=== PATIENT | female | born 1945 | race Hispanic/Latino ===

== ENCOUNTER → 2018-02-07 | Outpatient (CLI) | payer OTHER | END | disposition home or self-care (01) | LOC: RAH 09:43 | PROVIDERS: ATTEND Family Medicine | DX: Z12.31 Encounter for screening mammogram for malignant neoplasm of breast (principal) | CPT/HCPCS: 77067 ==

== ENCOUNTER → 2018-02-09 | Outpatient (CLI) | payer OTHER | END | disposition home or self-care (01) | LOC: RAH 13:53 | PROVIDERS: ATTEND Family Medicine | DX: H35.82 Retinal ischemia (principal) | CPT/HCPCS: 93880 ==

== ENCOUNTER → 2020-12-19 | Outpatient (CLI) | payer MEDICARE | END | disposition home or self-care (01) | LOC: OIH 12:41 | PROVIDERS: ATTEND Family Medicine | DX: Z01.818 Encounter for other preprocedural examination (principal); I10 Essential (primary) hypertension | CPT/HCPCS: 71046 ==

== ENCOUNTER 2024-06-28 19:14 | Inpatient (IN) | payer MEDICARE, OTHER ==
[~2024-06-28] VITALS: Ht 149.9 cm; Wt 45.8 kg
[2024-06-28] MEDS: 0.9%NACL 1000ML 1,000 ML IV ONE (19:56)
--- NOTE | 2024-06-28 19:59 | ERN ---
ED Note History of Present Illness Stated Complaint: C/O FATIGUE, NO APETITE,DIZZINESS, COUGH, PHLEGM Chief Complaint: Hypotension Time Seen by MD: 19:30 Dictation: History of present illness: 79-year-old female past medical history of diabetes, hypertension, GERD, presented to ED with complaints of worsening fatigue, decreased appetite, dizziness, productive cough of 2 weeks' duration. History obtained from the daughter at bedside. As per the daughter patient has not been ambulating even with walker for the past couple of days and her cough has been worsening. At the time of presentation, blood pressure was 76/43 mmHg and pulse rate was 103 beats per minute. Patient denies any chest pain, shortness of breath, palpitations, fever. Patient is taking Xarelto 20 mg daily for unknown cause. Allergies: Coded Allergies: No Known Allergies (Unverified Allergy, Unknown, 06/28/24) Past Medical History Past Medical History: Diabetes-Type II, Hypertension, Other Additional Past Medical Hx: ACID REFLUX Surgical History: Other, Surgical History Other: LEFT HIP SX Family History: Negative Social History: Negative History: Not Applicable RN Note Reviewed/Agreed w/PFSH: Yes Review of System Dictation REVIEW OF SYSTEMS Positive for worsening fatigue, decreased appetite, dizziness, productive cough CONSTITUTIONAL: Denies fevers, chills, or night sweats. No unintentional weight loss reported. ENT: No hearing loss, otalgia, otorrhea, rhinitis, rhinorrhea, hoarseness, or sore throat. CARDIOVASCULAR: Denies any exertional angina, dyspnea on exertion, orthopnea, paroxysmal nocturnal dyspnea, palpitations claudication. PULMONARY: Denies any shortness of breath, hemoptysis, pleuritic chest pain. SLEEP: Denies morning headaches, daytime somnolence or napping. Denies difficulty falling asleep, staying asleep, waking from sleep. Denies knowledge of snoring. GASTROINTESTINAL: Denies any type of dysphagia to either liquids or solids. Denies nausea, vomiting, abdominal pain, diarrhea, constipation. ?blood in stools . NEUROLOGICAL: Denies headache, motor weakness, sensory deficit, vertigo / spinning sensation, gait abnormalities, or tremors. GENITOURINARY: Denies frequency, urgency, nocturia, hematuria or incontinence, low urinary stream, straining to void, urinary intermittency or hesitancy ENDOCRINOLOGY: Denies polyuria, polydipsia, polyphagia or heat / cold intolerance. HEMATOLOGY: Denies thrombophilia / previous clots, or coagulopathy / bleeding disorders. ONCOLOGIC: Denies personal history of malignancy. DERMATOLOGIC: Denies rashes or pruritus. PSYCHIATRIC: Denies any suicidal or homicidal ideation. Denies hallucinations. Initial Vital Sign VS Vital Signs Date Time Temp Pulse Resp B/P (MAP) Pulse Ox O2 Delivery O2 Flow Rate FiO2 06/28/24 19:23 97.9 103 20 76/43 96 Room Air 06/28/24 19:49 0 21 Physical Exam Dictation PHYSICAL EXAM GENERAL APPEARANCE: Poorly nourished . Drowsy but easily arousable. Oriented to time, place and person. No acute cardiopulmonary distress. HEENT: Head normocephalic , atraumatic. Sclera anicteric . Pupils are round and reactive. Extraocular movements intact . No conjunctival injection. No nasal congestion. No throat congestion .Oral mucosa moist. NECK: Supple. No JVD. No thyromegaly. No submental, submandibular, pre- /postauricular, occipital or supraclavicular lymphadenopathy. No carotid bruits. CHEST: Normal chest expansion. No Telemetry. LUNGS: Clear to auscultation bilaterally . No rales, rhonchi or any wheezing. Equal tactile fremitus. Resonant to percussion . CARDIOVASCULAR: Regular rate and rhythm. S1 and S2 normal. No rubs, murmurs or gallops. ABDOMEN: Soft, generalized tenderness and nondistended. There is no rebound tenderness, voluntary guarding, or rigidity. No hepatosplenomegaly. Bowel sounds normal in all four quadrants . NEUROLOGICAL: Cranial nerves II-XII grossly intact. Motor is 5/5 in bilateral upper and lower extremities . No sensory deficits. EXTREMITIES: No edema, No cyanosis , No clubbing. Good capillary refill. SKIN: No skin breakdown. No rashes or lesions . PSYCHIATRY: Normal affect .No auditory or visual hallucinations. Normal speech. No dysarthria. Results (Laboratory/Radiology) Laboratory/Radiology Laboratory Tests Test 06/28/24 19:34 06/28/24 19:44 Influenza Type A Antigen Negative For Type A Influenza Type B Antigen Negative For Type B SARS-CoV-2, RNA, NAAT NEGATIVE SARS CoV-2 Group A Streptococcus Rapid negative (NEGATIVE) White Blood Count 13.1 K/uL (4.8-10.8) H Red Blood Count 2.22 MIL/uL (4.00-5.50) L Hemoglobin 6.3 g/dL (12.0-16.0) *L Hematocrit 19.4 % (36-48) *L Mean Corpuscular Volume 87.4 fL (79-99) Mean Corpuscular Hemoglobin 28.4 pg (27.0-33.0) Mean Corpuscular Hemoglobin Concent 32.5 g/dL (32.0-36.0) Red Cell Distribution Width 17.2 % (11.0-15.5) H Platelet Count 645 K/uL (130-400) H Mean Platelet Volume 8.5 fL (7.5-10.5) Immature Granulocyte % (Auto) 0.8 % (0-1) Neutrophils (%) (Auto) 79.8 % (40.0-77.0) H Lymphocytes (%) (Auto) 15.4 % (21.0-51.0) L Monocytes (%) (Auto) 2.3 % (3.0-13.0) L Eosinophils (%) (Auto) 1.5 % (0.0-8.0) Basophils (%) (Auto) 0.2 % (0.0-5.0) Neutrophils # (Auto) 10.4 K/uL (1.8-7.7) H Lymphocytes # (Auto) 2.0 K/uL (1.0-4.8) Monocytes # (Auto) 0.3 K/uL (0.1-1.0) Eosinophils # (Auto) 0.19 K/uL (0.00-0.70) Basophils # (Auto) 0.02 K/uL (0.00-0.20) Absolute Immature Granulocyte (auto 0.11 K/uL (0-1) Nucleated Red Blood Cells 0.0 % (0.0-0.19) Sodium Level 133 mmol/L (136-145) L Potassium Level 4.3 mmol/L (3.5-5.1) Chloride Level 101 mmol/L (101-111) Carbon Dioxide Level 20 mmol/L (21-32) L Blood Urea Nitrogen 26 mg/dL (7-18) H Creatinine 1.2 mg/dL (0.5-1.0) H Glomerular Filtration Rate Calc 46 mL/min (>90) Random Glucose 226 mg/dL (70-105) H Lactic Acid Level 2.8 mmol/L (0.8-2.5) H Total Calcium 8.0 mg/dL (8.5-10.1) L Total Creatine Kinase 22 U/L (21-232) Troponin I High Sensitivity 9 ng/L (4-50) Labs Reviewed?: Yes EKG Comment: EKG, 06/28/2024, 7:36 p.m. Sinus rhythm, ventricular rate 84 beats per minute, AR interval 129, QT 440 ST depression and T-wave inversion noted in lead 2, V5 ,V6 No old EKG to compare ED Course ED Course Orders Procedure Category Date Status Time 12 Lead Ekg Tracing- EKG 06/28/24 Logged Technical 19:38 Influenza Type A & B, LAB 06/28/24 Complete Rapid 19:38 Rapid (Group A Strep) LAB 06/28/24 Complete 19:38 Covid Rna Naat LAB 06/28/24 Complete 19:38 Iv Insertion CPOE 06/28/24 Transmitted 19:38 Pulse Ox(Continuous) RT 06/28/24 Transmitted 19:38 Vital Signs Per CPOE 06/28/24 Transmitted Routine 19:38 12 Lead Ekg Tracing- EKG 06/28/24 Logged Technical 19:38 Cbc With Differential LAB 06/28/24 Complete 19:38 Blood Cult VIVIAN 06/28/24 In Process 19:38 Urinalysis Profile LAB 06/28/24 Logged 19:38 Culture Urine VIVIAN 06/28/24 Logged 19:38 Creatine Kinase, Total LAB 06/28/24 Complete 19:38 Troponin I High LAB 06/28/24 Complete Sensitivity 19:38 Lactic Acid LAB 06/28/24 Complete 19:38 Basic Metabolic Panel LAB 06/28/24 Complete 19:38 Chest 1vw RAD 06/28/24 Taken 19:38 0.9%Nacl 1000ml (Ns PHA 06/28/24 Complete 1000ml) 20:00 Rbc-Active Bleeding BBK 06/28/24 In Process 20:07 *Nursing CPOE 06/28/24 Transmitted Communication: 20:07 Type And Screen BBK 06/28/24 In Process 20:07 Ceftriaxone 1g Vial PHA 06/28/24 Complete (Rocephine 1g Inj) 20:30 Azithromycin 500mg+Ns PHA 06/28/24 In Process 250ml (Azithromyci 20:30 Pantoprazole 40mg Inj PHA 06/28/24 Transmitted (Protonix 40mg Inj 21:30 Edm Admit Bridge Order ADM 06/28/24 Transmitted 21:11 Current Medications Medications (Trade) Dose Ordered Sig/Rebekah Route PRN Reason Start Time Stop Time Status Last Admin Dose Admin Azithromycin 250 ml @ 250 mls/hr ONCE ONCE IVPB 06/28/24 20:30 06/28/24 21:29 Ceftriaxone Sodium (ROCEphine 1G INJ) 1 gm ONCE ONCE IVPB 06/28/24 20:30 06/28/24 20:31 DC 06/28/24 20:55 Pantoprazole Sodium (PROTonix 40MG INJ) 40 mg ONCE ONCE IVP 06/28/24 21:30 06/28/24 21:31 Sodium Chloride 1,000 ml @ 0 mls/hr ONCE ONCE IV 06/28/24 20:00 06/28/24 20:01 DC 06/28/24 19:56 Vital Signs Date Time Temp Pulse Resp B/P (MAP) Pulse Ox O2 Delivery O2 Flow Rate FiO2 06/28/24 21:06 68 18 101/41 100 Room Air* 0 21 06/28/24 19:49 97.5 92 18 100/43 100 Room Air* 0 21 06/28/24 19:23 97.9 103 20 76/43 96 Room Air Medical Decision Making MDM Differential diagnosis : Acute NE, cardiogenic shock, septic shock, pneumonia Rationale: Tests considered and ordered secondary to shared decision making include: CBC, BMP, URINALYSIS, LACTIC ACID, K, TROPONIN, CHEST X-RAY, EKG I will re-evaluate the patient after treatment and diagnostic exams have returned to determine whether they require further testing, can be safely discharged home, or need admission for further treatment and evaluation. Given the social determinants of health affecting care, including literacy, access to medical care, prescription drug management, and [id number] drugs, I will ensure that treatment plans are tailored accordingly. There are no social concerns with this patient. Risk of complication and/or morbidity or mortality of patient management: None Need for hospitalization: Patient does not meet criteria for hospitalization. Need for emergency major/minor surgery: No Prescription drug management Prescriptions will include symptomatic care Medications-Per medication reconciliation Previous outside records reviewed: Old ER visits. Patient's prior external medical records from other ER visits were reviewed by me as indicated. Prior testing and results from previous visits were reviewed. Prior tests were taken into account with medical decision making and resource utilization, independent historian/historians were used to obtain complete medical history. I independently interpreted the test that were performed, results were reviewed by me and considered findings on radiology. Medical management and examination interpretation discussions was done by me with other qualified healthcare professionals as indicated for the patient's care. Revaluation Disposition : Problem List Problem List: (1) Lactic acidosis (2) Acute kidney injury (3) Sepsis due to pneumonia (4) Severe anemia (5) Anticoagulant long-term use (6) GI bleed (7) Hypotension DX & DISP Disposition: Inpatient Decision to Admit Time: 20:18 Departure Impression: Primary Impression: Sepsis due to pneumonia Additional Impressions: Hypotension, Severe anemia, GI bleed, Anticoagulant long-term use, Acute kidney injury, Lactic acidosis Condition: Stable Additional Instructions: Patient was informed of all the diagnostic labs and procedures conducted in the emergency room today and demonstrated understanding of the results. I personally reviewed and interpreted all the diagnostic exams performed in the ER today. The patient will be admitted to the hospital for further treatment and evaluation. Disposition-admit to facility Condition-stable/guarded Course-uncertain at this time Pain status-decreased Assessment-exam unchanged Admission Certification- I certify that the patients status is appropriate and is based on my best clinical judgment and the patient's condition as documented in the medical records Referrals: SOLITARIO HELLER MD (PCP) I have examined patient, & reviewed all documents, & agreed W/ the Diagnosis, and Plan This is an 79-year-old female who was brought in by family members with complaints of cough congestion for 2 weeks with profound weakness. She does report mucopurulent sputum. No history of any hemoptysis. At baseline usually uses a walker for mobility however last 2 weeks she is unable to even ambulate due to dizziness and weakness and hence the family has been using diapers. The daughter reported that patient has been on Xarelto 20 mg a day for DVT prophylaxis. Unclear if patient really had DVT from the history. on review of systems she also admits to tarry stools. patient also has poor appetite vital signs reviewed blood pressure 76 / 43, Which improved to 100/53 heart rate 103, respiratory rate 20, temperature 97.9, pulse oximetry 98% on room air. General: awake, alert, NAD Very pale elderly lady, comfortable not in any acute respiratory distress, coughing intermittently Head/Face: Normocephalic, atraumatic Eyes: PERRL, EOMI, vision at baseline ENT: oral cavity clear, TMs clear, no signs of infection Neck: Trachea midline, supple, no nuchal rigidity Cardiovascular: RRR, normal S1/S2, No MRGs, no JVD Respiratory: bilateral coarse rhonchi Abdomen: Soft, non-tender, non-distended, normal bowel sounds, no guarding or rebound. Skin: Warm, dry, normal turgor, no rash MS/Extremity: Pulses equal, no cyanosis, neurovascular intact, FROM Neuro: COAx4, GCS 15, strength 5/5, CN 2-12 intact, normal cerebellar exam, normal gait, Psych: Normal behavior, mood, and affect normal Extremities-trace edema without any palpable cords, Homans sign is negative CBC showed a leukocytosis, hemoglobin of 6.3. chest x-ray shows left retrocardiac possible infiltrate. Radiology report is pending Impression - sepsis likely from pulmonary origin community-acquired pneumonia severe anemia probably from melena and blood loss weakness and asthenia Gentle hydration, type and cross and transfuse 1 unit PRBC PPI. Hold Xarelto for now until more clarification with regards to indication from her primary care physician recommended admission to the hospital for further management. 9:10 p.m. patient accepted by [facility] for further admission and management. I have recommended ICU overnight at least BEHZAD KINSEY MD Jun 28, 2024 19:59 DINAH GRADY MD Jun 28, 2024 20:42
[2024-06-28 20:03] LABS: BASOPHILS # (AUTO) 0.02 K/uL (0.00-0.20); BASOPHILS % (AUTO) 0.2 % (0.0-5.0); EOSINOPHILS # (AUTO) 0.19 K/uL (0.00-0.70); EOSINOPHILS % (AUTO) 1.5 % (0.0-8.0); IMMATURE GRANULOCYTE ABSOLUTE 0.11 K/uL (0-1); LYMPHOCYTES % (AUTO) 15.4 % (21.0-51.0); MEAN CORPUSCULAR HEMOGLOBIN 28.4 pg (27.0-33.0); MEAN CORPUSCULAR HGB CONC 32.5 g/dL (32.0-36.0); MEAN CORPUSCULAR VOLUME 87.4 fL (79-99); MONOCYTES # (AUTO) 0.3 K/uL (0.1-1.0); MONOCYTES % (AUTO) 2.3 % (3.0-13.0); NEUTROPHILS # (AUTO) 10.4 K/uL (1.8-7.7); NEUTROPHILS % (AUTO) 79.8 % (40.0-77.0); PLATELET COUNT (AUTO) 645 K/uL (130-400); RED BLOOD CELL COUNT(AUTO) 2.22 MIL/uL (4.00-5.50); RED CELL DISTRIBUTION WIDTH 17.2 % (11.0-15.5); WHITE BLOOD COUNT (AUTO) 13.1 K/uL (4.8-10.8)
[2024-06-28 20:06] LABS: HEMATOCRIT 19.4 % (36-48)
[2024-06-28 20:10] LABS: RAPID GROUP A STREP negative (NEGATIVE)
[2024-06-28 20:13] LABS: SARS-CoV-2, RNA, NAAT NEGATIVE SARS CoV-2 (NEGATIVE)
[2024-06-28 20:20] LABS: INFLUENZA TYPE A Negative For Type A (NEGATIVE); INFLUENZA TYPE B Negative For Type B (NEGATIVE)
[2024-06-28 20:34] LABS: CREATININE 1.2 mg/dL (0.5-1.0); POTASSIUM 4.3 mmol/L (3.5-5.1)
[2024-06-28] MEDS: cefTRIAXone 1G VIAL IVPB ONE (20:55)
[2024-06-28] MEDS: AZITHROMYCIN 500MG+NS 250ML 250 ML IVPB ONE (21:23)
[2024-06-28] MEDS: PANTOPrazole 40 MG/VIAL IVP ONE (21:26)
--- NOTE | 2024-06-28 22:25 | HP ---
[facility] HISTORY & PHYSICAL Date Patient Seen: Jun 28, 2024 Time of Visit: 22:16 Supervising Physician: Dr. Zeinab Reeves Primary Care Physician: Dr. Jefferson Outpatient Specialists: [ ] Inpatient Consults: [ ] PROBLEM LIST: Severe sepsis, likely from pneumonia, UA pending POA Acute blood loss anemia, POA GI bleed, POA Acute kidney injury, POA Community-acquired pneumonia, POA Leukocytosis, POA Right leg pain, possible DVT, POA PLAN: Admit to PCCU Facilitate blood transfusion VS per unit protocol Complete bedrest for now H&H q.6 NPO for now Protonix b.i.d. We will obtain venous Doppler of the lower extremities PT/OT eval and treat Continue NS at 100 cc/hour Treat fever aggressively Obtain urine for UA Strict I&O Aspiration precautions DuoNeb q.6 Mucomyst q.6 Stool for occult blood Hold anticoagulants CBC, CMP, magnesium level daily HPI: 79-year-old female with past medical history of hypertension, dm type 2, previous hip replacement who presented to ED with complaint of generalized body weakness and productive cough and found to have possible community-acquired pneumonia, acute blood loss anemia, acute kidney injury, severe sepsis and possible GI bleed. Patient was seen and examined in ED with daughter present at bedside. Patient is Japanese-speaking only however daughter is able to translate during evaluation. According to her she has been having issues with generalized body weakness, fatigue, and cough and dark tarry stool, and she has been bed-bound for the past weeks and unable to get up on her own. The patient is also complaining of right leg pain. This was initially discussed with her PCP and was given anticoagulant for DVT prophylaxis. In ED stat chest x-ray was done and showed bilateral infiltrates, [place] [address], hemoglobin of 6.3, lactic acid of 2.8, and creatinine level of 1.2. Initial evaluation in ED patient was tachycardic, and borderline hypotensive improved with IV bolus. In ED patient was initiated on ceftriaxone azithromycin for cap coverage, and was ordered 1 unit PRBC. At present patient is currently normal sinus rhythm, with systolic blood pressure 100 mmHg, on room air appropriate oxygen saturation, denies any headache, chest pain, shortness of breath, abdominal pain, but complains of right leg pain and generalized body weakness. Patient also looks pale. Patient denies any smoking, alcohol intake, illicit drug use. Patient is vaccinated against COVID virus in her flu shot is up-to-date. PAST MEDICAL HX: see above PAST SURGICAL HX: Right hip surgery SOCIAL HISTORY: No tobacco, ETOH, or illicit drug use Coded Allergies: No Known Allergies (Unverified Allergy, Unknown, 06/28/24) REVIEW OF SYSTEMS: 12 point ROS reviewed with patient. Pertinent positives mentioned above. Otherwise negative. PHYSICAL EXAM: GENERAL: alert, weak, awake oriented x 3 HEENT: EOMI, Sclera non icteric, moist mucosa NECK: Supple, no JVD, trachea midline LUNGS: Clear breath sounds bilaterally. No wheezes HEART: Regular rate and rhythm. Normal S1 and S2, without murmurs ABD: Abdomen soft, nontender. Bowel sounds present EXT: No clubbing cyanosis or edema, right leg pain NEURO: Alert and oriented to person, follows commands Vital Signs (last 8hr) Date Time Temp Pulse Resp B/P (MAP) Pulse Ox O2 Delivery O2 Flow Rate FiO2 06/28/24 21:06 68 18 101/41 100 Room Air* 0 21 06/28/24 19:49 97.5 92 18 100/43 100 Room Air* 0 21 06/28/24 19:23 97.9 103 20 76/43 96 Room Air LABS: Hematology Labs: Test 06/28/24 19:44 Range/Units White Blood Count 13.1 H 4.8-10.8 K/uL Red Blood Count 2.22 L 4.00-5.50 MIL/uL Hemoglobin 6.3 *L 12.0-16.0 g/dL Hematocrit 19.4 *L 36-48 % Mean Corpuscular Volume 87.4 79-99 fL Mean Corpuscular Hemoglobin 28.4 27.0-33.0 pg Mean Corpuscular Hemoglobin Concent 32.5 32.0-36.0 g/dL Red Cell Distribution Width 17.2 H 11.0-15.5 % Platelet Count 645 H 130-400 K/uL Mean Platelet Volume 8.5 7.5-10.5 fL Immature Granulocyte % (Auto) 0.8 0-1 % Neutrophils (%) (Auto) 79.8 H 40.0-77.0 % Lymphocytes (%) (Auto) 15.4 L 21.0-51.0 % Monocytes (%) (Auto) 2.3 L 3.0-13.0 % Eosinophils (%) (Auto) 1.5 0.0-8.0 % Basophils (%) (Auto) 0.2 0.0-5.0 % Neutrophils # (Auto) 10.4 H 1.8-7.7 K/uL Lymphocytes # (Auto) 2.0 1.0-4.8 K/uL Monocytes # (Auto) 0.3 0.1-1.0 K/uL Eosinophils # (Auto) 0.19 0.00-0.70 K/uL Basophils # (Auto) 0.02 0.00-0.20 K/uL Absolute Immature Granulocyte (auto 0.11 0-1 K/uL Nucleated Red Blood Cells 0.0 0.0-0.19 % Chemistry Labs: Test 06/28/24 19:44 Range/Units Sodium Level 133 L 136-145 mmol/L Potassium Level 4.3 3.5-5.1 mmol/L Chloride Level 101 101-111 mmol/L Carbon Dioxide Level 20 L 21-32 mmol/L Blood Urea Nitrogen 26 H 7-18 mg/dL Creatinine 1.2 H 0.5-1.0 mg/dL Glomerular Filtration Rate Calc 46 >90 mL/min Random Glucose 226 H 70-105 mg/dL Lactic Acid Level 2.8 H 0.8-2.5 mmol/L Total Calcium 8.0 L 8.5-10.1 mg/dL Total Creatine Kinase 22 21-232 U/L Troponin I High Sensitivity 9 4-50 ng/L DIAGNOSTICS / RADIOLOGY RESULTS: [ ] PLAN NEURO: Minimize central acting medications as possible. Maintain fall precautions, adequate lighting during the day PULMONARY: Supplemental 02 as needed. Maintain aspiration precautions at all times CARDIOVASCULAR: Follow hemodynamics. Vital signs per facility protocol GI & NUTRITION: Continue with nutritional support. Continue stool softeners and laxatives as needed. KIDNEYS & ELECTROLYTES: Strict monitoring of intake, output and overall fluid balance. Avoid nephrotoxic medications to the extent possible. Medications to be dosed according to renal function. Monitor electrolytes and replace as needed ENDOCRINE: Maintain blood glucose between 100-180 at all times. Hypoglycemia protocol in place INFECTIOUS DISEASE: Trend temperature, WBC and procalcitonin level Follow cultures, deescalate antibiotics as soon as possible. Panculture if new onset fever ONCOLOGY/HEMATOLOGY/COAGULATION: Monitor for s/s of bleeding Monitor hemoglobin, coagulation studies as needed SKIN: Pressure ulcer prevention per facility protocol Specialty mattress ORTHO/REHAB: Continue PT/OT Prophylaxis: Continue GI and DVT prophylaxis Code Status: Full Resuscitation Disposition: TBD Other: Total patient care time exceeds 35 minutes excluding all procedures. Supervising physician Dr. Zeinab ALLEN,MERCEDES Keita AGACNP Jun 28, 2024 22:25
[2024-06-28] MEDS ORDERED: acetaMINOPHEN 650 MG SUPPOSITORY RC PRN (22:30)
--- NOTE | 2024-06-28 22:41 | HMCIMG ---
CHEST 1VW HISTORY: Cough COMPARISON: None FINDINGS: A frontal projection of the chest was obtained. There are mild interstitial fibrosis with bronchiectasis. No acute pulmonary infiltrates is seen. The heart is borderline enlarged. Degenerative changes are seen. Aortic calcifications are seen. IMPRESSION: 1. Mild interstitial fibrosis with bronchiectasis.
[2024-06-28] MEDS: 0.9%NACL 1000ML 1,000 ML IV SCH (22:44)
[2024-06-28] MEDS: acetylCYSTeine 20% 200MG/ML 4ML VIAL ONE (23:06)
[2024-06-28] MEDS: IpraTROPium 0.5 MG/2.5 ML INH IH ONE (23:06)
[2024-06-28 23:10] VITALS: PULSE 77; RESP 18; O2SAT 100
[2024-06-28 23:11] VITALS: PULSE 72; RESP 18
[2024-06-28 23:41] LABS: HEMATOCRIT 17.9 % (36-48)
[2024-06-29] VITALS (24 sets, daily range): BP systolic 108–153; BP diastolic 42–71; PULSE 68–107; RESP 16–37; TEMP 97.8–98.7; O2SAT 98–100
[2024-06-29] MEDS: acetylCYSTeine 20% 200MG/ML 4ML VIAL NEB SCH
[2024-06-29] MEDS: INSULIN humuLIN R 100 UNIT/ML 3ML SQ SCH
[2024-06-29] MEDS: IpraTROPium 0.5 MG/2.5 ML INH IH SCH
--- NOTE | 2024-06-29 00:17 | HMCIMG ---
US VENOUS DOPPLER BILATERAL HISTORY: Right leg pain COMPARISON: None TECHNIQUE: Bilateral lower extremity venous Doppler ultrasound study was performed. FINDINGS: The common femoral, femoral, popliteal, and posterior tibial veins are visualized. Normal flow with augmentation and compressibilities are demonstrated. The greater saphenous veins are also seen and grossly patent. IMPRESSION: 1. No evidence of deep venous thrombosis is seen.
[2024-06-29 03:40] LABS: BASOPHILS # (AUTO) 0.01 K/uL (0.00-0.20); BASOPHILS % (AUTO) 0.1 % (0.0-5.0); EOSINOPHILS # (AUTO) 0.02 K/uL (0.00-0.70); EOSINOPHILS % (AUTO) 0.2 % (0.0-8.0); HEMATOCRIT 26.1 % (36-48); IMMATURE GRANULOCYTE ABSOLUTE 0.07 K/uL (0-1); LYMPHOCYTES # (AUTO) 2.2 K/uL (1.0-4.8); LYMPHOCYTES % (AUTO) 19.3 % (21.0-51.0); MEAN CORPUSCULAR HEMOGLOBIN 27.8 pg (27.0-33.0); MEAN CORPUSCULAR HGB CONC 32.6 g/dL (32.0-36.0); MEAN CORPUSCULAR VOLUME 85.3 fL (79-99); MONOCYTES # (AUTO) 0.4 K/uL (0.1-1.0); MONOCYTES % (AUTO) 3.2 % (3.0-13.0); NEUTROPHILS # (AUTO) 8.7 K/uL (1.8-7.7); NEUTROPHILS % (AUTO) 76.6 % (40.0-77.0); PLATELET COUNT (AUTO) 477 K/uL (130-400); RED BLOOD CELL COUNT(AUTO) 3.06 MIL/uL (4.00-5.50); RED CELL DISTRIBUTION WIDTH 16.9 % (11.0-15.5); WHITE BLOOD COUNT (AUTO) 11.3 K/uL (4.8-10.8)
[2024-06-29 05:13] LABS: % IRON SATURATION 54.3 % (22-44); MAGNESIUM 1.8 mg/dL (1.80-2.40); PHOSPHORUS 3.1 mg/dL (2.5-4.9); THYROID STIMULATING HORMONE 1.81 uIU/mL (0.36-3.74)
[2024-06-29] MEDS ORDERED: METO-408 PO (05:20)
[2024-06-29] MEDS ORDERED: AMLO-257 PO (05:20)
[2024-06-29] MEDS ORDERED: SULF1TAB42 PO (05:20)
[2024-06-29] MEDS ORDERED: RIVA20TA PO (05:20)
[2024-06-29] MEDS ORDERED: METO10TA3 PO (05:20)
[2024-06-29] MEDS ORDERED: BENZ-226 PO (05:20)
[2024-06-29] MEDS ORDERED: ERGO500093 PO (05:20)
[2024-06-29] MEDS ORDERED: LOSA100T59 PO (05:20)
[2024-06-29] MEDS ORDERED: PANT40TA PO (05:23)
--- NOTE | 2024-06-29 06:48 | EKG ---
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
[2024-06-29] MEDS: PANTOPrazole 40 MG/VIAL IVP SCH (09:34)
[2024-06-29] MEDS: FERROUS SULFATE 325 MG TABLET.DR PO SCH (09:35)
[2024-06-29] MEDS: polyETHYLene GLYCol 3350 17 GM POWD.PACK PO SCH (09:35)
[2024-06-29] MEDS: ASCORBIC ACID 500 MG TAB PO SCH (09:35)
--- NOTE | 2024-06-29 10:20 | PN ---
[facility] PROGRESS NOTE Date Patient Seen: Jun 29, 2024 Time of Visit: 10:19 Supervising Physician: Stefan Mosley MD Primary Care Physician: Dr. Jefferson Outpatient Specialists: [ ] Inpatient Consults: [ ] PROBLEM LIST: Severe sepsis likely from pneumonia, POA Pending UA and culture Acute blood loss anemia, POA GI bleed, POA Acute kidney injury, POA Community-acquired pneumonia, POA, Leukocytosis, POA Right leg pain, DVT rule out. Mild interstitial fibrosis with bronchiectasis POA PLAN: Admit to PCCU Facilitate blood transfusion VS per unit protocol Complete bedrest for now H&H q.6 NPO for now Protonix b.i.d. We will obtain venous Doppler of the lower extremities PT/OT eval and treat LR at 75 mL/hour Treat fever aggressively Obtain urine for UA Strict I&O Aspiration precautions DuoNeb q.6 Mucomyst q.6 Stool for occult blood Hold anticoagulants due to GI bleed CBC, CMP, magnesium level daily Consult gastroenterology and follow the recommendations INTERVAL HISTORY: Patient is awake alert and oriented x3 Nigerian-speaking reports generalized weakness. No major overnight events as per RN. No further bloody stools or bloody emesis reported by patient or family members. Patient is hemodynamically stable afebrile in the last 24 hours. H&H has improved status post 1 unit of PRBCs it is 8.5/26.1 and stabilized. White count this morning trending down 11.3 neutrophils normalized. Chemistries sodium 137 potassium 3.9 carbon dioxide is 20 BUN 19 creatinine 0.8 GFR of 74 total calcium 7.6 total protein 5.2 and albumin 1.8. Venous Doppler shows no evidence of DVT. On chest x-ray mild interstitial fibrosis with bronchiectasis. REVIEW OF SYSTEMS: 12 point ROS reviewed with patient. Pertinent positives mentioned above. Otherwise negative. PHYSICAL EXAM: GENERAL: alert, weak, awake oriented x 3 HEENT: EOMI, Sclera non icteric, moist mucosa NECK: Supple, no JVD, trachea midline LUNGS: Clear breath sounds bilaterally. No wheezes HEART: Regular rate and rhythm. Normal S1 and S2, without murmurs ABD: Abdomen soft, nontender. Bowel sounds present EXT: No clubbing cyanosis or edema, right leg pain NEURO: Alert and oriented to person, follows commands Vital Signs (last 8hr) Date Time Temp Pulse Resp B/P (MAP) Pulse Ox O2 Delivery O2 Flow Rate FiO2 06/29/24 08:00 98 Room Air* 0 06/29/24 06:25 69 18 N/A Room Air 06/29/24 06:21 69 18 06/29/24 05:00 80 20 135/55 99 Room Air 06/29/24 04:30 71 17 128/51 99 Room Air 06/29/24 04:20 98 Room Air* 0 21 06/29/24 04:20 98.8 75 22 135/65 98 Room Air 06/29/24 03:18 71 18 128/50 100 Room Air* 0 21 LABS: Hematology Labs: Test 06/29/24 03:34 Range/Units White Blood Count 11.3 H 4.8-10.8 K/uL Red Blood Count 3.06 #L 4.00-5.50 MIL/uL Hemoglobin 8.5 #L 12.0-16.0 g/dL Hematocrit 26.1 #L 36-48 % Mean Corpuscular Volume 85.3 79-99 fL Mean Corpuscular Hemoglobin 27.8 27.0-33.0 pg Mean Corpuscular Hemoglobin Concent 32.6 32.0-36.0 g/dL Red Cell Distribution Width 16.9 H 11.0-15.5 % Platelet Count 477 #H 130-400 K/uL Mean Platelet Volume 8.2 7.5-10.5 fL Immature Granulocyte % (Auto) 0.6 0-1 % Neutrophils (%) (Auto) 76.6 40.0-77.0 % Lymphocytes (%) (Auto) 19.3 L 21.0-51.0 % Monocytes (%) (Auto) 3.2 3.0-13.0 % Eosinophils (%) (Auto) 0.2 0.0-8.0 % Basophils (%) (Auto) 0.1 0.0-5.0 % Neutrophils # (Auto) 8.7 H 1.8-7.7 K/uL Lymphocytes # (Auto) 2.2 1.0-4.8 K/uL Monocytes # (Auto) 0.4 0.1-1.0 K/uL Eosinophils # (Auto) 0.02 0.00-0.70 K/uL Basophils # (Auto) 0.01 0.00-0.20 K/uL Absolute Immature Granulocyte (auto 0.07 0-1 K/uL Nucleated Red Blood Cells 0.0 0.0-0.19 % Chemistry Labs: Test 06/29/24 05:32 06/29/24 03:34 06/28/24 23:43 06/28/24 19:44 Range/Units Whole Blood Glucose 114 H 70-110 MG/DL Phosphorus Level 3.1 2.5-4.9 mg/dL Magnesium Level 1.80 1.80-2.40 mg/dL Iron Level 69 50-170 mcg/dL Total Iron Binding Capacity 127 L 250-450 mcg/dL Percent Iron Saturation 54.3 H 22-44 % Procalcitonin 0.11 0.05-0.5 ng/mL Thyroid Stimulating Hormone (TSH) 1.81 0.36-3.74 uIU/mL Lactic Acid Level 1.0 0.8-2.5 mmol/L Sodium Level 133 L 136-145 mmol/L Potassium Level 4.3 3.5-5.1 mmol/L Chloride Level 101 101-111 mmol/L Carbon Dioxide Level 20 L 21-32 mmol/L Blood Urea Nitrogen 26 H 7-18 mg/dL Creatinine 1.2 H 0.5-1.0 mg/dL Glomerular Filtration Rate Calc 46 >90 mL/min Random Glucose 226 H 70-105 mg/dL Total Calcium 8.0 L 8.5-10.1 mg/dL Total Creatine Kinase 22 21-232 U/L Troponin I High Sensitivity 9 4-50 ng/L DIAGNOSTICS / RADIOLOGY RESULTS: PATIENT: BUCKY PARRA MR#: [id number] : 1945 SEX: F AGE: 79 LOCATION: [facility] ORDER 42 STATUS: REG REPORT#: [id number] SERVICE 37 REASON: COUGH ORDERING PHYSICIAN: DINAH GRADY MD PROCEDURE: CXR1VW - CHEST 1VW CHEST 1VW HISTORY: Cough COMPARISON: None FINDINGS: A frontal projection of the chest was obtained. There are mild interstitial fibrosis with bronchiectasis. No acute pulmonary infiltrates is seen. The heart is borderline enlarged. Degenerative changes are seen. Aortic calcifications are seen. IMPRESSION: 1. Mild interstitial fibrosis with bronchiectasis. DICTATED BY: AYALA SIMS MD DATE: 06/28/242237 ELECTRONICALLY SIGNED BY: AYALA SIMS MD DATE: 06/28/242240 PLAN NEURO: Minimize central acting medications as possible. Fall Precautions. Well lighted room through the day and minimize interruptions through the night to prevent acute delirium. PULMONARY: Supplemental 02 as needed Titrate Fio2 to keep Spo2 > or = 90% DuoNebs and CPT as needed IS hourly while awake for pulmonary hygiene Out of bed to chair as tolerated VAP Bundle CARDIOVASCULAR: Follow hemodynamics. Titrate vasopressor to keep MAP >65 or systolic blood pressure >95mmHg Drips: None LINES: PIV GI & NUTRITION: Continue nutritional support Aspirations precautions Prokinetic agents and laxatives as needed KIDNEYS & ELECTROLYTES: Strict monitoring of intake and output Daily weights Avoid nephrotoxic agents Monitor electrolytes and replace as needed Goal urine output of 30mL/hr or 0.5mL/kg/hr Urine output: [ ] Fluid Balance: [ ] ENDOCRINE: Maintain blood glucose between 100-180 at all times. Insulin sliding scale for blood glucose management INFECTIOUS DISEASE: Trend temperature. Wyatt-culture if febrile. Micro: [ ] Antibiotics: Rocephin Azithromycin HEMATOLOGY & COAGULATION: Monitor H&H. Keep Hgb > 7 Transfuse 1 unit of PRBC for Hgb < 7 Transfuse 1 pack of platelets of platelets < 20, 000 Watch for any signs and symptoms of bleeding SKIN: Pressure ulcer prevention per facility protocol Rehab: PT/OT Prophylaxis: GI: Protonix 40 mg IV push b.i.d. DVT: SCDs Code Status: Full Resuscitation Disposition: PCCU Other: Total patient care time exceeds 35 minutes excluding all procedures. Case was discussed and seen with my supervising physician. The above plan was formulated and agreed upon. SAMINA JESUS Jun 29, 2024 10:20
[2024-06-29 10:25] LABS: HEMATOCRIT 27.4 % (36-48)
[2024-06-29] MEDS: LACTATED RINGERS 1000ML 1,000 ML IV SCH (10:26)
[2024-06-29] MEDS ORDERED: DORZ10DR10 OP (10:31)
[2024-06-29 10:43] LABS: ALBUMIN 1.8 g/dL (3.5-5.0); BILIRUBIN,TOTAL 0.4 mg/dL (0.2-1.0); CREATININE 0.8 mg/dL (0.5-1.0); POTASSIUM 3.9 mmol/L (3.5-5.1); TOTAL PROTEIN, SERUM 5.2 g/dL (6.0-8.3)
[2024-06-29 17:55] LABS: HEMATOCRIT 25.7 % (36-48)
[2024-06-29] MEDS: PEG 3350/NA SULF,BICARB,CL/KCL 4000 ML SOLN PO STA (18:02)
[2024-06-29] MEDS: cefTRIAXone 1G VIAL IVP SCH (21:03)
--- NOTE | 2024-06-29 21:49 | CONS ---
GASTROENTEROLOGY CONSULTATION NOTE Date of Consultation: Jun 29, 2024 Time of Consultation: 21:49 History of Present Illness: This is an 79-year-old female with past medical history of hypertension, type 2 diabetes, previous hip replacement who presented due to generalized body weakness, cough. She was found to have community-acquired pneumonia, acute loss anemia, acute kidney injury, sepsis and possible GI bleed. Hemoglobin on admission was 6.3 with a platelet count of 645. LFTs unremarkable. WBC 11.3. No recent EGD or colonoscopy. Review of Systems: CONSTITUTIONAL: No malaise or change in sensation of wellbeing. ENMT: No rhinorrhea, otorrhea, sinus pain, ear ache. CARDIOVASCULAR: No angina, palpitations, orthopnea or paroxysmal dyspnea. RESPIRATORY: No SOB. GASTROINTESTINAL: No abdominal pain, nausea, vomiting, diarrhea, hematemesis, melena or change in the patient's habitual bowel movements consistency/number. GENITOURINARY: No dysuria, hematuria or change in bladder continence. MUSCULOSKELETAL: No new muscle pain or decrease in muscular strength. No new joint swelling, redness or tenderness. SKIN: No new rash. Past Medical History: [ ] Past Surgical History: [ ] Past Social History: [ ] Family History: [ ] Coded Allergies: No Known Allergies (Unverified Allergy, Unknown, 06/28/24) Physical Exam: GEN: Awake, alert, oriented in person, time and place, and in no acute distress. HEENT: No sinus tenderness. Tympanic membranes were not examined. No rhinorrhea. Oral pharyngeal mucosa is pink, moist and within normal limits. Neck is supple with no cervical lymphadenopathy, thyromegaly or JVD. CHEST: Inspection, palpation and percussion of the chest were unremarkable. Lung auscultation revealed normal breath sounds bilaterally. CARDIAC: PMI is within normal limits. Heart sounds are regular. Normal S1, S2. No gallop or murmur. ABD: Soft, non-tender and not distended. No peritoneal signs on palpation. No organomegaly. Normal bowel sounds. EXT: No cyanosis or clubbing. No edema. SKIN: Intact. No rashes. JOINTS: No evidence of synovitis or acute arthritis. NEURO: Alert and oriented to name, place and person. Cranial nerve examination is unremarkable. No focal motor deficits. Normal speech. Gait is normal. Strength is normal. Vital Sign (Last 24 Hours) 06/29/24 06/29/24 19:15 19:39 Temp 97.9 Pulse 101 Resp 21 B/P (MAP) 153/71 Pulse Ox 99 O2 Delivery Room Air* O2 Flow Rate 0 FiO2 21 Intake & Output (last 24hrs) 06/28/24 06/28/24 06/29/24 15:00 23:00 07:00 Intake Total 300.0 ml Balance 300.0 ml Laboratory: [ ] Laboratory: Test 06/29/24 17:38 06/29/24 10:17 06/29/24 05:32 06/29/24 03:34 Range/Units Hemoglobin 8.2 L 12.0-16.0 g/dL Hematocrit 25.7 L 36-48 % Sodium Level 137 136-145 mmol/L Potassium Level 3.9 3.5-5.1 mmol/L Chloride Level 105 101-111 mmol/L Carbon Dioxide Level 20 L 21-32 mmol/L Blood Urea Nitrogen 19 H 7-18 mg/dL Creatinine 0.8 0.5-1.0 mg/dL Glomerular Filtration Rate Calc 74 >90 mL/min Random Glucose 88 # 70-105 mg/dL Total Calcium 7.6 L 8.5-10.1 mg/dL Total Bilirubin 0.4 0.2-1.0 mg/dL Aspartate Amino Transf (AST/SGOT) 25 10-37 U/L Alanine Aminotransferase (ALT/SGPT) 17 12-78 U/L Alkaline Phosphatase 97 50-136 U/L Total Protein 5.2 L 6.0-8.3 g/dL Albumin 1.8 L 3.5-5.0 g/dL Whole Blood Glucose 114 H 70-110 MG/DL White Blood Count 11.3 H 4.8-10.8 K/uL Red Blood Count 3.06 #L 4.00-5.50 MIL/uL Mean Corpuscular Volume 85.3 79-99 fL Mean Corpuscular Hemoglobin 27.8 27.0-33.0 pg Mean Corpuscular Hemoglobin Concent 32.6 32.0-36.0 g/dL Red Cell Distribution Width 16.9 H 11.0-15.5 % Platelet Count 477 #H 130-400 K/uL Mean Platelet Volume 8.2 7.5-10.5 fL Immature Granulocyte % (Auto) 0.6 0-1 % Neutrophils (%) (Auto) 76.6 40.0-77.0 % Lymphocytes (%) (Auto) 19.3 L 21.0-51.0 % Monocytes (%) (Auto) 3.2 3.0-13.0 % Eosinophils (%) (Auto) 0.2 0.0-8.0 % Basophils (%) (Auto) 0.1 0.0-5.0 % Neutrophils # (Auto) 8.7 H 1.8-7.7 K/uL Lymphocytes # (Auto) 2.2 1.0-4.8 K/uL Monocytes # (Auto) 0.4 0.1-1.0 K/uL Eosinophils # (Auto) 0.02 0.00-0.70 K/uL Basophils # (Auto) 0.01 0.00-0.20 K/uL Absolute Immature Granulocyte (auto 0.07 0-1 K/uL Nucleated Red Blood Cells 0.0 0.0-0.19 % Phosphorus Level 3.1 2.5-4.9 mg/dL Magnesium Level 1.80 1.80-2.40 mg/dL Iron Level 69 50-170 mcg/dL Total Iron Binding Capacity 127 L 250-450 mcg/dL Percent Iron Saturation 54.3 H 22-44 % Procalcitonin 0.11 0.05-0.5 ng/mL Thyroid Stimulating Hormone (TSH) 1.81 0.36-3.74 uIU/mL Test 06/28/24 23:43 06/28/24 19:44 06/28/24 19:34 Range/Units Lactic Acid Level 1.0 0.8-2.5 mmol/L Total Creatine Kinase 22 21-232 U/L Troponin I High Sensitivity 9 4-50 ng/L Influenza Type A Antigen Negative For Type A NEGATIVE Influenza Type B Antigen Negative For Type B NEGATIVE SARS-CoV-2, RNA, NAAT NEGATIVE SARS CoV-2 NEGATIVE Group A Streptococcus Rapid negative NEGATIVE Current Medications Medications (Trade) Dose Ordered Sig/Rebekah Route PRN Reason Start Time Stop Time Status Last Admin Dose Admin Acetaminophen (TYLenol 325MG TAB) 650 mg Q6H PRN PO FEVER/MILD PAIN LEVEL 1-3 06/28/24 22:30 07/28/24 22:29 Acetaminophen (TYLenol 650MG SUPPOSITORY) 650 mg Q6H PRN RC FEVER / MILD PAIN 1-3 IF NPO 06/28/24 22:30 07/28/24 22:29 Acetaminophen/ Hydrocodone Bitart (NORco 5/325MG) 1 tab Q6H PRN PO MODERATE PAIN (4-6) 06/28/24 22:30 07/03/24 22:29 Acetylcysteine (MUComyst 20% 4ML) 800 mg [id number] NEB 06/29/24 00:00 07/29/24 00:00 06/29/24 18:28 800 MG Ascorbic Acid (Vitamin C 500mg Tab) 500 mg DAILY PO 06/29/24 09:00 07/29/24 08:59 06/29/24 09:35 500 MG Azithromycin (Azithromycin 500mg+NS 250ml) 500 mg Q24H IV 06/29/24 22:30 07/09/24 22:29 Ceftriaxone Sodium (ROCEphine 1G INJ) 1 gm Q24H IVP 06/29/24 22:30 07/09/24 22:29 06/29/24 21:03 1 GM Ferrous Sulfate (Ferrous Sulfate) 325 mg DAILY PO 06/29/24 09:00 07/29/24 08:59 06/29/24 09:35 325 MG Insulin Human Regular (humuLIN R 100 UNIT/ML 3ML) INSULIN SLIDING SCAL... Q6H6 SQ 06/29/24 00:00 07/29/24 00:00 Ipratropium [place] (AtrovENT UD) 0.5 mg [id number] IH 06/29/24 00:00 07/29/24 00:00 06/29/24 18:28 0.5 MG Lactated Ringer's 1,000 ml @ 75 mls/hr [id number] IV 06/29/24 10:30 07/29/24 10:29 06/29/24 10:26 75 MLS/HR Pantoprazole Sodium (PROTonix 40MG INJ) 40 mg BID IVP 06/29/24 09:00 07/29/24 08:59 06/29/24 20:09 40 MG Polyethylene Glycol (MIRalax 3350 17 GM POWD.PACK) 17 gm DAILY PO 06/29/24 09:00 07/29/24 08:59 06/29/24 09:35 17 GM Polyethylene Glycol/ Electrolytes (Golytely/Colyte Soln) 4,000 ml ONCE STAT PO 06/29/24 17:48 06/29/24 17:51 DC 06/29/24 18:02 4,000 ML Sodium Chloride 1,000 ml @ 100 mls/hr Q10H IV 06/28/24 22:30 06/29/24 10:15 DC 06/29/24 09:35 100 MLS/HR Diagnostics / Radiology: [COPY/PASTE HERE IF NO REPORTS PLEASE DELETE SECTION] Assessment: GI bleed Acute blood loss anemia DM HTN Plan: 1. NPO after MN 2. EGD and Colonoscopy in AM. I have discussed the risks, benefits, alternatives and potential complications. Questions were answered and the patient agrees to proceed. 3. Golytely 4 L po starting at 1700 4. Clear liquid diet avoiding red and purple colored liquids 5. Tap water enema in AM as needed 6. Please check Hg every 6 hours and transfuse to goal Hg 7-8. Please do not overtransfuse Thank you for allowing us to participate in the care of this patient! RANDALL ZUÑIGA ROLL FORM OPERATOR Jun 29, 2024 21:49
[2024-06-29] MEDS: AZITHROMYCIN 500MG+NS 250ML IV SCH (22:43)
[2024-06-30] VITALS (21 sets, daily range): BP systolic 104–147; BP diastolic 40–62; PULSE 75–128; RESP 12–25; TEMP 98.1–99.3; O2SAT 97–98
[2024-06-30 00:27] LABS: HEMATOCRIT 24.8 % (36-48)
[2024-06-30 05:15] LABS: BASOPHILS # (AUTO) 0.01 K/uL (0.00-0.20); BASOPHILS % (AUTO) 0.1 % (0.0-5.0); EOSINOPHILS # (AUTO) 0.12 K/uL (0.00-0.70); EOSINOPHILS % (AUTO) 1.3 % (0.0-8.0); HEMATOCRIT 25.7 % (36-48); IMMATURE GRANULOCYTE ABSOLUTE 0.05 K/uL (0-1); LYMPHOCYTES # (AUTO) 1.4 K/uL (1.0-4.8); LYMPHOCYTES % (AUTO) 14.8 % (21.0-51.0); MEAN CORPUSCULAR HEMOGLOBIN 27.1 pg (27.0-33.0); MEAN CORPUSCULAR HGB CONC 31.9 g/dL (32.0-36.0); MEAN CORPUSCULAR VOLUME 84.8 fL (79-99); MONOCYTES # (AUTO) 0.3 K/uL (0.1-1.0); MONOCYTES % (AUTO) 3.2 % (3.0-13.0); NEUTROPHILS # (AUTO) 7.6 K/uL (1.8-7.7); NEUTROPHILS % (AUTO) 80.1 % (40.0-77.0); PLATELET COUNT (AUTO) 458 K/uL (130-400); RED BLOOD CELL COUNT(AUTO) 3.03 MIL/uL (4.00-5.50); RED CELL DISTRIBUTION WIDTH 18.1 % (11.0-15.5); WHITE BLOOD COUNT (AUTO) 9.5 K/uL (4.8-10.8)
[2024-06-30 05:28] LABS: ALBUMIN 1.7 g/dL (3.5-5.0); BILIRUBIN,TOTAL 0.4 mg/dL (0.2-1.0); CREATININE 0.6 mg/dL (0.5-1.0); POTASSIUM 4.2 mmol/L (3.5-5.1)
[2024-06-30] MEDS: DEXTROSE 5%-LACTATED RINGERS 1,000 ML IV SCH (06:21)
[2024-06-30] MEDS ORDERED: proPOFol 10 MG/ML 20ML VIAL IV ONE (08:14)
[2024-06-30] MEDS ORDERED: LIDOCAINE PF 100MG/5ML (2%) SYRINGE 5ML ONE (08:14)
--- NOTE | 2024-06-30 11:06 | PN ---
[facility] PROGRESS NOTE Date Patient Seen: Jun 30, 2024 Time of Visit: 11:06 Supervising Physician: Dimitri Aviles MD Primary Care Physician: Dr. Jefferson Outpatient Specialists: [ ] Inpatient Consults: [ ] PROBLEM LIST: Severe sepsis likely from pneumonia, POA Pending UA and culture Acute blood loss anemia, POA GI bleed, POA Acute kidney injury, POA Community-acquired pneumonia, POA, Leukocytosis, POA Right leg pain, DVT rule out. Mild interstitial fibrosis with bronchiectasis POA INTERVAL HISTORY: 06/29-Patient is awake alert and oriented x3 Indonesian-speaking reports generalized weakness. No major overnight events as per RN. No further bloody stools or bloody emesis reported by patient or family members. Patient is hemodynamically stable afebrile in the last 24 hours. H&H has improved status post 1 unit of PRBCs it is 8.5/26.1 and stabilized. White count this morning trending down 11.3 neutrophils normalized. Chemistries sodium 137 potassium 3.9 carbon dioxide is 20 BUN 19 creatinine 0.8 GFR of 74 total calcium 7.6 total protein 5.2 and albumin 1.8. Venous Doppler shows no evidence of DVT. On chest x-ray mild interstitial fibrosis with bronchiectasis. 06/30-patient is drowsy status post EGD with biopsy of gastritis no bleed angioectasia in the duodenum and colonoscopy with multiple no bleeding angiectasias no specimen collected from colonoscopy per report. White count 9.5 H&H 8.2/25.7 platelet count is [id number] sodium is 139 potassium 4.2 CO2 19. Influenza negative COVID-19 negative rapid strep negative. No growth two blood cultures for 48 hours. Once patient is more awake post sedation from endoscopy procedure she may be downgraded to medical-surgical. REVIEW OF SYSTEMS: General: No malaise or fever. Neurological: No fainting episodes or seizures. HEENT: No nasal congestion or nasal secretion. Respiratory: No cough, shortness of breath, or wheezing Cardiac: No chest pain or palpitations. Gastrointestinal: No vomiting or diarrhea. Genitourinary: No dysuria hematuria. Skin: No rashes or lesions. Hematological: No bruises or bleeding. Musculoskeletal: No joint pains or arthralgias. Psychiatric: No depression or panic attacks. PHYSICAL EXAM: GENERAL: alert, weak, awake oriented x 3 HEENT: EOMI, Sclera non icteric, moist mucosa NECK: Supple, no JVD, trachea midline LUNGS: Clear breath sounds bilaterally. No wheezes HEART: Regular rate and rhythm. Normal S1 and S2, without murmurs ABD: Abdomen soft, nontender. Bowel sounds present EXT: No clubbing cyanosis or edema, right leg pain NEURO: Alert and oriented to person, follows commands Vital Signs (last 8hr) Date Time Temp Pulse Resp B/P (MAP) Pulse Ox O2 Delivery O2 Flow Rate FiO2 06/30/24 10:48 102 18 139/57 100 Venti Mask 10.0 06/30/24 09:48 86 12 125/42 100 Venti Mask 10.0 06/30/24 09:19 98.2 83 12 104/40 100 Venti Mask 10.0 06/30/24 07:49 98.4 128 25 147/62 98 Room Air 06/30/24 07:30 98 Room Air* 0 21 06/30/24 06:48 102 20 122/59 98 Room Air 06/30/24 06:34 95 24 N/A Room Air 21 06/30/24 06:31 101 24 LABS: Hematology Labs: Test 06/30/24 05:07 Range/Units White Blood Count 9.5 4.8-10.8 K/uL Red Blood Count 3.03 L 4.00-5.50 MIL/uL Hemoglobin 8.2 L 12.0-16.0 g/dL Hematocrit 25.7 L 36-48 % Mean Corpuscular Volume 84.8 79-99 fL Mean Corpuscular Hemoglobin 27.1 27.0-33.0 pg Mean Corpuscular Hemoglobin Concent 31.9 L 32.0-36.0 g/dL Red Cell Distribution Width 18.1 H 11.0-15.5 % Platelet Count 458 H 130-400 K/uL Mean Platelet Volume 8.8 7.5-10.5 fL Immature Granulocyte % (Auto) 0.5 0-1 % Neutrophils (%) (Auto) 80.1 H 40.0-77.0 % Lymphocytes (%) (Auto) 14.8 L 21.0-51.0 % Monocytes (%) (Auto) 3.2 3.0-13.0 % Eosinophils (%) (Auto) 1.3 0.0-8.0 % Basophils (%) (Auto) 0.1 0.0-5.0 % Neutrophils # (Auto) 7.6 1.8-7.7 K/uL Lymphocytes # (Auto) 1.4 1.0-4.8 K/uL Monocytes # (Auto) 0.3 0.1-1.0 K/uL Eosinophils # (Auto) 0.12 0.00-0.70 K/uL Basophils # (Auto) 0.01 0.00-0.20 K/uL Absolute Immature Granulocyte (auto 0.05 0-1 K/uL Nucleated Red Blood Cells 0.0 0.0-0.19 % Red Blood Cell Morphology See comments Chemistry Labs: Test 06/30/24 08:24 06/30/24 05:07 06/29/24 03:34 06/28/24 23:43 Range/Units Whole Blood Glucose 86 70-110 MG/DL Sodium Level 139 136-145 mmol/L Potassium Level 4.2 3.5-5.1 mmol/L Chloride Level 105 101-111 mmol/L Carbon Dioxide Level 19 L 21-32 mmol/L Blood Urea Nitrogen 10 7-18 mg/dL Creatinine 0.6 0.5-1.0 mg/dL Glomerular Filtration Rate Calc 91 >90 mL/min Random Glucose 70 70-105 mg/dL Total Calcium 7.4 L 8.5-10.1 mg/dL Total Bilirubin 0.4 0.2-1.0 mg/dL Aspartate Amino Transf (AST/SGOT) 38 H 10-37 U/L Alanine Aminotransferase (ALT/SGPT) 16 12-78 U/L Alkaline Phosphatase 91 50-136 U/L Total Protein 5.0 L 6.0-8.3 g/dL Albumin 1.7 L 3.5-5.0 g/dL Phosphorus Level 3.1 2.5-4.9 mg/dL Magnesium Level 1.80 1.80-2.40 mg/dL Iron Level 69 50-170 mcg/dL Total Iron Binding Capacity 127 L 250-450 mcg/dL Percent Iron Saturation 54.3 H 22-44 % Procalcitonin 0.11 0.05-0.5 ng/mL Thyroid Stimulating Hormone (TSH) 1.81 0.36-3.74 uIU/mL Lactic Acid Level 1.0 0.8-2.5 mmol/L Test 06/28/24 19:44 Range/Units Total Creatine Kinase 22 21-232 U/L Troponin I High Sensitivity 9 4-50 ng/L DIAGNOSTICS / RADIOLOGY RESULTS: [ ] Plan: Admit to PCCU PT to eval and treat Case management for DC planning Continue Protonix Venous Doppler with no evidence of DVT Aspiration precautions Stool for occult blood Hold anticoagulants due to GI bleed pending GI clearance CBC, CMP, magnesium level daily NEURO: Minimize central acting medications as possible. Fall Precautions. Well lighted room through the day and minimize interruptions through the night to prevent acute delirium. PULMONARY: Supplemental 02 as needed Titrate Fio2 to keep Spo2 > or = 90% DuoNebs and CPT as needed IS hourly while awake for pulmonary hygiene Out of bed to chair as tolerated VAP Bundle CARDIOVASCULAR: Follow hemodynamics. Titrate vasopressor to keep MAP >65 or systolic blood pressure >95mmHg Drips: None LINES: PIV GI & NUTRITION: Continue nutritional support Aspirations precautions Prokinetic agents and laxatives as needed KIDNEYS & ELECTROLYTES: Strict monitoring of intake and output Daily weights Avoid nephrotoxic agents Monitor electrolytes and replace as needed Goal urine output of 30mL/hr or 0.5mL/kg/hr Urine output: [ ] Fluid Balance: [ ] ENDOCRINE: Maintain blood glucose between 100-180 at all times. Insulin sliding scale for blood glucose management INFECTIOUS DISEASE: Trend temperature. Wyatt-culture if febrile. Micro: [ ] Antibiotics: Rocephin Azithromycin HEMATOLOGY & COAGULATION: Monitor H&H. Keep Hgb > 7 Transfuse 1 unit of PRBC for Hgb < 7 Transfuse 1 pack of platelets of platelets < 20, 000 Watch for any signs and symptoms of bleeding SKIN: Pressure ulcer prevention per facility protocol Rehab: PT/OT Prophylaxis: GI: Protonix 40 mg IV push b.i.d. DVT: SCDs Code Status: Full Resuscitation Disposition: PCCU Other: Total patient care time exceeds 35 minutes excluding all procedures. Case was discussed and seen with my supervising physician. The above plan was formulated and agreed upon. SAMINA JESUS Jun 30, 2024 11:06
[2024-06-30] MEDS ORDERED: BENZONATATE 100 MG CAPSULE PO PRN (11:30)
[2024-06-30] MEDS: metoPROLOL tartRATE 1 MG/ML 5ML VIAL IV PRN (11:32)
[2024-06-30] MEDS: metoPROLOL tartRATE 1 MG/ML 5ML VIAL IV ONE (11:38)
[2024-06-30] MEDS: MAGNESIUM 2GM PREMIX 50ML 50 ML IV PRN (13:11)
[2024-06-30 16:00] LABS: HEMATOCRIT 23.1 % (36-48)
[2024-06-30 16:09] LABS: CREATININE 0.5 mg/dL (0.5-1.0)
[2024-06-30] MEDS: PoTASSium chl 10% ELIXIR 20MEQ 20 MEQ/15 ML UDCUP PO PRN (17:14)
[2024-06-30] MEDS: metoCLOPRAmide 10 MG TABLET PO SCH (17:14)
[2024-07-01] VITALS (18 sets, daily range): BP systolic 118–144; BP diastolic 34–56; PULSE 71–121; RESP 13–24; TEMP 98–99.6; O2SAT 95–100
[2024-07-01 01:58] LABS: HEMATOCRIT 22.9 % (36-48)
[2024-07-01 02:10] LABS: MAGNESIUM 2.1 mg/dL (1.80-2.40); POTASSIUM 4.1 mmol/L (3.5-5.1)
[2024-07-01 04:36] LABS: EOSINOPHILS # (AUTO) 0.34 K/uL (0.00-0.70); EOSINOPHILS % (AUTO) 5.1 % (0.0-8.0); HEMATOCRIT 21.5 % (36-48); IMMATURE GRANULOCYTE ABSOLUTE 0.03 K/uL (0-1); LYMPHOCYTES % (AUTO) 14.8 % (21.0-51.0); MEAN CORPUSCULAR HEMOGLOBIN 27.9 pg (27.0-33.0); MEAN CORPUSCULAR HGB CONC 32.1 g/dL (32.0-36.0); MONOCYTES # (AUTO) 0.3 K/uL (0.1-1.0); MONOCYTES % (AUTO) 4.4 % (3.0-13.0); NEUTROPHILS % (AUTO) 75.2 % (40.0-77.0); PLATELET COUNT (AUTO) 379 K/uL (130-400); RED BLOOD CELL COUNT(AUTO) 2.47 MIL/uL (4.00-5.50); RED CELL DISTRIBUTION WIDTH 18.3 % (11.0-15.5); WHITE BLOOD COUNT (AUTO) 6.6 K/uL (4.8-10.8)
[2024-07-01 04:52] LABS: ALBUMIN 1.2 g/dL (3.5-5.0); BILIRUBIN,TOTAL 0.2 mg/dL (0.2-1.0); CREATININE 0.5 mg/dL (0.5-1.0); TOTAL PROTEIN, SERUM 3.9 g/dL (6.0-8.3)
[2024-07-01 05:38] LABS: HEMATOCRIT 22.1 % (36-48)
[2024-07-01] MEDS: amLODIPine 5 MG TAB PO SCH (08:36)
[2024-07-01] MEDS: LoSARTan 100 MG TABLET PO SCH (08:36)
[2024-07-01] MEDS: metOPROLol sucCINATE 25 MG TAB.SR.24H PO SCH (08:36)
--- NOTE | 2024-07-01 08:42 | PN ---
[facility] PROGRESS NOTE Date Patient Seen: Jul 01, 2024 Time of Visit: 08:28 Supervising Physician: Don Garcia MD Primary Care Physician: Dr. Jefferson Outpatient Specialists: [ ] Inpatient Consults: GI Dr Mendoza PROBLEM LIST: Severe sepsis likely from pneumonia, POA Pending UA and culture Acute blood loss anemia, POA GI bleed, POA S/P EGD gastritis biopsied on 06/30/24 One nonbleeding angioectasia in the duodenum Normal 2nd portion of the duodenum Colonoscopy 06/30/24-patent end-to-side ileocolonic anastomosis, multiple nonbleeding colonic angioectasia no specimen collected. Acute kidney injury, POA Community-acquired pneumonia, POA, Leukocytosis, POA Right leg pain, DVT rule out. Mild interstitial fibrosis with bronchiectasis POA INTERVAL HISTORY: 06/29-Patient is awake alert and oriented x3 Irish-speaking reports generalized weakness. No major overnight events as per RN. No further bloody stools or bl oody emesis reported by patient or family members. Patient is hemodynamically stable afebrile in the last 24 hours. H&H has improved status post 1 unit of PRBCs it is 8.5/26.1 and stabilized. White count this morning trending down 11.3 neutrophils normalized. Chemistries sodium 137 potassium 3.9 carbon dioxide is 20 BUN 19 creatinine 0.8 GFR of 74 total calcium 7.6 total protein 5.2 and albumin 1.8. Venous Doppler shows no evidence of DVT. On chest x-ray mild interstitial fibrosis with bronchiectasis. 06/30-patient is drowsy status post EGD with biopsy of gastritis no bleed angioectasia in the duodenum and colonoscopy with multiple no bleeding angiectasias no specimen collected from colonoscopy per report. White count 9.5 H&H 8.2/25.7 platelet count is [id number] sodium is 139 potassium 4.2 CO2 19. Influenza negative COVID-19 negative rapid strep negative. No growth two blood cultures for 48 hours. Once patient is more awake post sedation from endoscopy procedure she may be downgraded to medical-surgical. 07/01-patient is awake alert and oriented x3 no further signs and symptoms of bleeding. Morning H&H of 7.2/22.1 with a platelet count of [id number]. Chemistries sodium is 139 potassium is four CO2 25 BUN of five creatinine of 0.5 and GFR of 95 much improvement from admission which was a GFR of 46. Patient awaiting for PT eval and recommendations. Family's concern of patient's increased debilitation and we will likely recommendation of physical therapy for possible rehabilitation. Case management for DC planning. Otherwise patient can be downgraded to medical-surgical. REVIEW OF SYSTEMS: General: No malaise or fever. Neurological: No fainting episodes or seizures. HEENT: No nasal congestion or nasal secretion. Respiratory: No cough, shortness of breath, or wheezing Cardiac: No chest pain or palpitations. Gastrointestinal: No vomiting or diarrhea. Genitourinary: No dysuria hematuria. Skin: No rashes or lesions. Hematological: No bruises or bleeding. Musculoskeletal: No joint pains or arthralgias. Psychiatric: No depression or panic attacks. PHYSICAL EXAM: GENERAL: alert, weak, awake oriented x 3 HEENT: EOMI, Sclera non icteric, moist mucosa NECK: Supple, no JVD, trachea midline LUNGS: Coarse rhonchi breath sounds to right lower lobe. No wheezes HEART: Regular rate and rhythm. Normal S1 and S2, without murmurs ABD: Abdomen soft, nontender. Bowel sounds present EXT: No clubbing cyanosis or edema, right leg pain NEURO: Alert and oriented to person, follows commands Vital Signs (last 8hr) Date Time Temp Pulse Resp B/P (MAP) Pulse Ox O2 Delivery O2 Flow Rate FiO2 07/01/24 07:04 81 18 N/A Room Air 21 07/01/24 07:01 84 18 07/01/24 06:00 75 16 123/35 94 Room Air 07/01/24 04:00 71 13 119/34 93 Room Air LABS: Hematology Labs: Test 07/01/24 05:32 07/01/24 04:19 06/30/24 05:07 Range/Units Hemoglobin 7.2 L 12.0-16.0 g/dL Hematocrit 22.1 L 36-48 % White Blood Count 6.6 # 4.8-10.8 K/uL Red Blood Count 2.47 L 4.00-5.50 MIL/uL Mean Corpuscular Volume 87.0 79-99 fL Mean Corpuscular Hemoglobin 27.9 27.0-33.0 pg Mean Corpuscular Hemoglobin Concent 32.1 32.0-36.0 g/dL Red Cell Distribution Width 18.3 H 11.0-15.5 % Platelet Count 379 130-400 K/uL Mean Platelet Volume 8.1 7.5-10.5 fL Immature Granulocyte % (Auto) 0.5 0-1 % Neutrophils (%) (Auto) 75.2 40.0-77.0 % Lymphocytes (%) (Auto) 14.8 L 21.0-51.0 % Monocytes (%) (Auto) 4.4 3.0-13.0 % Eosinophils (%) (Auto) 5.1 0.0-8.0 % Basophils (%) (Auto) 0.0 0.0-5.0 % Neutrophils # (Auto) 5.0 1.8-7.7 K/uL Lymphocytes # (Auto) 1.0 1.0-4.8 K/uL Monocytes # (Auto) 0.3 0.1-1.0 K/uL Eosinophils # (Auto) 0.34 0.00-0.70 K/uL Basophils # (Auto) 0.00 0.00-0.20 K/uL Absolute Immature Granulocyte (auto 0.03 0-1 K/uL Nucleated Red Blood Cells 0.0 0.0-0.19 % Red Blood Cell Morphology See comments Chemistry Labs: Test 07/01/24 04:19 07/01/24 01:44 Range/Units Sodium Level 139 136-145 mmol/L Potassium Level 4.0 3.5-5.1 mmol/L Chloride Level 108 101-111 mmol/L Carbon Dioxide Level 25 21-32 mmol/L Blood Urea Nitrogen 5 L 7-18 mg/dL Creatinine 0.5 0.5-1.0 mg/dL Glomerular Filtration Rate Calc 95 >90 mL/min Random Glucose 81 70-105 mg/dL Total Calcium 6.9 L 8.5-10.1 mg/dL Magnesium Level 2.00 1.80-2.40 mg/dL Total Bilirubin 0.2 # 0.2-1.0 mg/dL Aspartate Amino Transf (AST/SGOT) 26 10-37 U/L Alanine Aminotransferase (ALT/SGPT) 14 12-78 U/L Alkaline Phosphatase 72 50-136 U/L Total Protein 3.9 #L 6.0-8.3 g/dL Albumin 1.2 #L 3.5-5.0 g/dL Whole Blood Glucose 91 70-110 MG/DL DIAGNOSTICS / RADIOLOGY RESULTS: [ ] PLAN Patient to continue with Rocephin and azithromycin Follow urine culture Follow respiratory culture PT to eval and treat Case management for DC planning. Awaiting recommendation for GI in regards to restart of Xarelto, otherwise holding blood thinners for now. iron supplementation. NEURO: Minimize central acting medications as possible. Maintain fall precautions, adequate lighting during the day PULMONARY: Supplemental 02 as needed. Maintain aspiration precautions at all times CARDIOVASCULAR: Follow hemodynamics. Vital signs per facility protocol GI & NUTRITION: Continue with nutritional support. Continue stool softeners and laxatives as needed. KIDNEYS & ELECTROLYTES: Strict monitoring of intake, output and overall fluid balance. Avoid nephrotoxic medications to the extent possible. Medications to be dosed according to renal function. Monitor electrolytes and replace as needed ENDOCRINE: Maintain blood glucose between 100-180 at all times. Hypoglycemia protocol in place INFECTIOUS DISEASE: Trend temperature, WBC and procalcitonin level Follow cultures, deescalate antibiotics as soon as possible. Panculture if new onset fever ONCOLOGY/HEMATOLOGY/COAGULATION: Monitor for s/s of bleeding Monitor hemoglobin, coagulation studies as needed SKIN: Pressure ulcer prevention per facility protocol Specialty mattress ORTHO/REHAB: Continue PT/OT Prophylaxis: Continue GI and DVT prophylaxis Code Status: Full Resuscitation Disposition: TBD Other: Total patient care time exceeds 35 minutes excluding all procedures. SAM[facility] Jul 01, 2024 08:42
[2024-07-01] MEDS: FERROUS SULFATE 325 MG TABLET.DR PO SCH (09:00)
[2024-07-01] MEDS: SODIUM CHLORIDE 3% FOR INHALATION 4 ML/AMP VIAL.NEB IH ONE ×2 (11:36→18:40)
[2024-07-01] MEDS: cefTRIAXone 1G VIAL ONE (20:19)
[2024-07-01] MEDS: INSULIN humuLIN R 100 UNIT/ML 3ML SQ SCH (20:19)
[2024-07-01 20:45] LABS: APPEARANCE,URINE CLEAR (CLEAR); BILIRUBIN,URINE NEGATIVE (NEGATIVE); COLOR,URINE YELLOW (YELLOW); GLUCOSE, URINE (UA) NEGATIVE (NEGATIVE); KETONES,URINE 20 mg/dL (NEGATIVE); LEUKOCYTE ESTERASE ,URINE 25 Leu/uL (NEGATIVE); NITRATE,URINE NEGATIVE (NEGATIVE); OCCULT BLOOD,URINE NEGATIVE (NEGATIVE); PH,URINE 5.5 (5.0-8.0); PROTEIN,URINE 10 mg/dL (NEGATIVE); UROBILINOGEN,URINE 0.2 mg/dL (0.2-1.0)
[2024-07-01 20:47] LABS: ADD UA MICROSCOPIC YES
[2024-07-01 20:48] LABS: BACTERIA,URINE RARE /HPF (None Seen); MUCUS,URINE RARE LPF (None Seen); SQUAMOUS EPITHELIAL CELL,UR MOD /HPF (0-2)
[2024-07-01] MEDS: HYDROcodone/APAP 5/325 1 TAB TABLET PO PRN (23:28)
[2024-07-02] VITALS (12 sets, daily range): BP systolic 105–142; BP diastolic 46–78; PULSE 70–97; RESP 16–19; TEMP 97.8–99.5; O2SAT 98–99
[2024-07-02 04:01] LABS: BASOPHILS # (AUTO) 0.03 K/uL (0.00-0.20); BASOPHILS % (AUTO) 0.3 % (0.0-5.0); EOSINOPHILS # (AUTO) 0.47 K/uL (0.00-0.70); EOSINOPHILS % (AUTO) 4.7 % (0.0-8.0); IMMATURE GRANULOCYTE ABSOLUTE 0.04 K/uL (0-1); LYMPHOCYTES # (AUTO) 2.1 K/uL (1.0-4.8); LYMPHOCYTES % (AUTO) 21.2 % (21.0-51.0); MEAN CORPUSCULAR HEMOGLOBIN 28.1 pg (27.0-33.0); MEAN CORPUSCULAR HGB CONC 32.1 g/dL (32.0-36.0); MEAN CORPUSCULAR VOLUME 87.6 fL (79-99); MONOCYTES # (AUTO) 0.4 K/uL (0.1-1.0); MONOCYTES % (AUTO) 3.7 % (3.0-13.0); NEUTROPHILS % (AUTO) 69.7 % (40.0-77.0); PLATELET COUNT (AUTO) 379 K/uL (130-400); RED BLOOD CELL COUNT(AUTO) 2.74 MIL/uL (4.00-5.50); RED CELL DISTRIBUTION WIDTH 18.6 % (11.0-15.5)
[2024-07-02 04:22] LABS: ALBUMIN 1.3 g/dL (3.5-5.0); BILIRUBIN,TOTAL 0.1 mg/dL (0.2-1.0); CREATININE 0.5 mg/dL (0.5-1.0); POTASSIUM 3.8 mmol/L (3.5-5.1); TOTAL PROTEIN, SERUM 4.2 g/dL (6.0-8.3)
[2024-07-02] MEDS: PoTASSium chloRIDE 20MEQ ER 20 MEQ ERTAB PO PRN (04:57)
[2024-07-02 09:11] LABS: INR 0.99 (0.85-1.15); PROTHROMBIN TIME 10.7 SEC (9.6-11.6)
--- NOTE | 2024-07-02 15:39 | PN ---
[facility] PROGRESS NOTE Date Patient Seen: Jul 02, 2024 Time of Visit: 15:31 Supervising Physician: [Dr. Garcia] Primary Care Physician: Dr. Jefferson Outpatient Specialists: [ ] Inpatient Consults: GI Dr Mendoza PROBLEM LIST: Severe sepsis likely from pneumonia, POA Acute blood loss anemia, POA GI bleed, POA S/P EGD gastritis biopsied on 06/30/24 One nonbleeding angioectasia in the duodenum Normal 2nd portion of the duodenum Colonoscopy 06/30/24-patent end-to-side ileocolonic anastomosis, multiple nonbleeding colonic angioectasia no specimen collected. Acute kidney injury, resolvedPOA Community-acquired pneumonia, treated POA, Leukocytosis, POA Right leg pain, DVT rule out. Mild interstitial fibrosis with bronchiectasis POA INTERVAL HISTORY: 06/29-Patient is awake alert and oriented x3 Luxembourgish-speaking reports generalized weakness. No major overnight events as per RN. No further bloody stools or bloody emesis reported by patient or family members. Patient is hemodynamically stable afebrile in the last 24 hours. H&H has improved status post 1 unit of PRBCs it is 8.5/26.1 and stabilized. White count this morning trending down 11.3 neutrophils normalized. Chemistries sodium 137 potassium 3.9 carbon dioxide is 20 BUN 19 creatinine 0.8 GFR of 74 total calcium 7.6 total protein 5.2 and albumin 1.8. Venous Doppler shows no evidence of DVT. On chest x-ray mild interstitial fibrosis with bronchiectasis. 06/30-patient is drowsy status post EGD with biopsy of gastritis no bleed angioectasia in the duodenum and colonoscopy with multiple no bleeding angiectasias no specimen collected from colonoscopy per report. White count 9.5 H&H 8.2/25.7 platelet count is [id number] sodium is 139 potassium 4.2 CO2 19. Influenza negative COVID-19 negative rapid strep negative. No growth two blood cultures for 48 hours. Once patient is more awake post sedation from endoscopy procedure she may be downgraded to medical-surgical. 07/02 patient is evaluated at bedside. Vitals were within normal limits. WBC is 10 today, hemoglobin 7.7, platelets 379. BNP is within normal limits with a creatinine 0.5. Blood cultures are negative. Patient did have EGD and colonoscopy which showed an angio ectasia in the duodenum as well multiple, nonbleeding angioectasias in the colon. No biopsies were taken per report. Per discussion with patient and daughter at bedside, they stated she was recently placed on Xarelto by her PCP but does not recall the reason. She denies any history of atrial fibrillation or blood clots. Was advised that due to findings on EGD/colonoscopy as well as no current indication for DOAC, we will discontinue. Patient advised to follow with PCP for clarification upon disch arge. Patient is tolerating diet without nausea, vomiting or abdominal pain. She has not had a bowel movement today. She continues to work with physical therapy, pending SNF for continued physical therapy. REVIEW OF SYSTEMS: General: No malaise or fever. Neurological: No fainting episodes or seizures. HEENT: No nasal congestion or nasal secretion. Respiratory: No cough, shortness of breath, or wheezing Cardiac: No chest pain or palpitations. Gastrointestinal: No vomiting or diarrhea. Genitourinary: No dysuria hematuria. Skin: No rashes or lesions. Hematological: No bruises or bleeding. Musculoskeletal: No joint pains or arthralgias. Psychiatric: No depression or panic attacks. PHYSICAL EXAM: GENERAL: alert, weak, awake oriented x 3 HEENT: EOMI, Sclera non icteric, moist mucosa NECK: Supple, no JVD, trachea midline LUNGS: Coarse rhonchi breath sounds to right lower lobe. No wheezes HEART: Regular rate and rhythm. Normal S1 and S2, without murmurs ABD: Abdomen soft, nontender. Bowel sounds present EXT: No clubbing cyanosis or edema, right leg pain NEURO: Alert and oriented to person, follows commands Vital Signs (last 8hr) Date Time Temp Pulse Resp B/P (MAP) Pulse Ox O2 Delivery O2 Flow Rate FiO2 07/02/24 12:00 98.1 87 18 121/51 100 Room Air 07/02/24 11:12 74 18 07/02/24 08:00 97.9 76 19 127/51 99 Room Air 07/02/24 08:00 99 Room Air* 0 21 LABS: Hematology Labs: Test 07/02/24 03:48 Range/Units White Blood Count 10.0 # 4.8-10.8 K/uL Red Blood Count 2.74 L 4.00-5.50 MIL/uL Hemoglobin 7.7 L 12.0-16.0 g/dL Hematocrit 24.0 L 36-48 % Mean Corpuscular Volume 87.6 79-99 fL Mean Corpuscular Hemoglobin 28.1 27.0-33.0 pg Mean Corpuscular Hemoglobin Concent 32.1 32.0-36.0 g/dL Red Cell Distribution Width 18.6 H 11.0-15.5 % Platelet Count 379 130-400 K/uL Mean Platelet Volume 8.0 7.5-10.5 fL Immature Granulocyte % (Auto) 0.4 0-1 % Neutrophils (%) (Auto) 69.7 40.0-77.0 % Lymphocytes (%) (Auto) 21.2 21.0-51.0 % Monocytes (%) (Auto) 3.7 3.0-13.0 % Eosinophils (%) (Auto) 4.7 0.0-8.0 % Basophils (%) (Auto) 0.3 0.0-5.0 % Neutrophils # (Auto) 7.0 1.8-7.7 K/uL Lymphocytes # (Auto) 2.1 1.0-4.8 K/uL Monocytes # (Auto) 0.4 0.1-1.0 K/uL Eosinophils # (Auto) 0.47 0.00-0.70 K/uL Basophils # (Auto) 0.03 0.00-0.20 K/uL Absolute Immature Granulocyte (auto 0.04 0-1 K/uL Nucleated Red Blood Cells 0.0 0.0-0.19 % Chemistry Labs: Test 07/02/24 11:27 07/02/24 03:48 Range/Units Whole Blood Glucose 127 H 70-110 MG/DL Sodium Level 136 136-145 mmol/L Potassium Level 3.8 3.5-5.1 mmol/L Chloride Level 106 101-111 mmol/L Carbon Dioxide Level 26 21-32 mmol/L Blood Urea Nitrogen 5 L 7-18 mg/dL Creatinine 0.5 0.5-1.0 mg/dL Glomerular Filtration Rate Calc 95 >90 mL/min Random Glucose 95 70-105 mg/dL Total Calcium 7.1 L 8.5-10.1 mg/dL Magnesium Level 2.00 1.80-2.40 mg/dL Total Bilirubin 0.1 #L 0.2-1.0 mg/dL Aspartate Amino Transf (AST/SGOT) 30 10-37 U/L Alanine Aminotransferase (ALT/SGPT) 14 12-78 U/L Alkaline Phosphatase 81 50-136 U/L Total Protein 4.2 L 6.0-8.3 g/dL Albumin 1.3 L 3.5-5.0 g/dL Coagulation Labs: Test 07/02/24 08:50 Range/Units Prothrombin Time 10.7 9.6-11.6 SEC Prothromb Time International Ratio 0.99 0.85-1.15 DIAGNOSTICS / RADIOLOGY RESULTS: Reviewed PLAN Discontinue antibiotics Follow urine culture Follow respiratory culture PT to eval and treat Discontinue xarelto unless indicated, will need to reevaluate risk vs benefit if indicated CM for SNF NEURO: Minimize central acting medications as possible. Maintain fall precautions, adequate lighting during the day PULMONARY: Supplemental 02 as needed. Maintain aspiration precautions at all times CARDIOVASCULAR: Follow hemodynamics. Vital signs per facility protocol GI & NUTRITION: Continue with nutritional support. Continue stool softeners and laxatives as needed. KIDNEYS & ELECTROLYTES: Strict monitoring of intake, output and overall fluid balance. Avoid nephrotoxic medications to the extent possible. Medications to be dosed according to renal function. Monitor electrolytes and replace as needed ENDOCRINE: Maintain blood glucose between 100-180 at all times. Hypoglycemia protocol in place INFECTIOUS DISEASE: Trend temperature, WBC and procalcitonin level Follow cultures, deescalate antibiotics as soon as possible. Panculture if new onset fever ONCOLOGY/HEMATOLOGY/COAGULATION: Monitor for s/s of bleeding Monitor hemoglobin, coagulation studies as needed SKIN: Pressure ulcer prevention per facility protocol Specialty mattress ORTHO/REHAB: Continue PT/OT Prophylaxis: Continue GI and DVT prophylaxis Code Status: Full Resuscitation Disposition: TBD Other: Total patient care time exceeds 35 minutes excluding all procedures. JOSE CARLOS ANTOINE Jul 02, 2024 15:39
[2024-07-03] VITALS (17 sets, daily range): BP systolic 117–147; BP diastolic 47–64; PULSE 69–100; RESP 16–20; TEMP 97.7–100.2; O2SAT 96–99
[2024-07-03 05:08] LABS: HEMATOCRIT 21.7 % (36-48); MEAN CORPUSCULAR HEMOGLOBIN 27.6 pg (27.0-33.0); MEAN CORPUSCULAR HGB CONC 31.8 g/dL (32.0-36.0); MEAN CORPUSCULAR VOLUME 86.8 fL (79-99); RED BLOOD CELL COUNT(AUTO) 2.5 MIL/uL (4.00-5.50); RED CELL DISTRIBUTION WIDTH 18.9 % (11.0-15.5); WHITE BLOOD COUNT (AUTO) 7.5 K/uL (4.8-10.8)
[2024-07-03] MEDS: acetaMINOPHEN 325 MG TAB PO PRN (08:30)
--- NOTE | 2024-07-03 13:47 | PN ---
GASTROENTEROLOGY PROGRESS NOTE Date of Consultation: Jul 03, 2024 Time of Consultation: 13:47 Events / Notes: [ ] Review of Systems: CONSTITUTIONAL: No malaise or change in sensation of wellbeing. ENMT: No rhinorrhea, otorrhea, sinus pain, ear ache. CARDIOVASCULAR: No angina, palpitations, orthopnea or paroxysmal dyspnea. RESPIRATORY: No SOB. GASTROINTESTINAL: No abdominal pain, nausea, vomiting, diarrhea, hematemesis, melena or change in the patient's habitual bowel movements consistency/number. GENITOURINARY: No dysuria, hematuria or change in bladder continence. MUSCULOSKELETAL: No new muscle pain or decrease in muscular strength. No new joint swelling, redness or tenderness. SKIN: No new rash. Physical Exam: GEN: Awake, alert, oriented in person, time and place, and in no acute distress. HEENT: No sinus tenderness. Tympanic membranes were not examined. No rhinorrhea. Oral pharyngeal mucosa is pink, moist and within normal limits. Neck is supple with no cervical lymphadenopathy, thyromegaly or JVD. CHEST: Inspection, palpation and percussion of the chest were unremarkable. Lung auscultation revealed normal breath sounds bilaterally. CARDIAC: PMI is within normal limits. Heart sounds are regular. Normal S1, S2. No gallop or murmur. ABD: Soft, non-tender and not distended. No peritoneal signs on palpation. No organomegaly. Normal bowel sounds. EXT: No cyanosis or clubbing. No edema. SKIN: Intact. No rashes. JOINTS: No evidence of synovitis or acute arthritis. NEURO: Alert and oriented to name, place and person. Cranial nerve examination is unremarkable. No focal motor deficits. Normal speech. Gait is normal. Strength is normal. Vital Signs (last 8hr) Date Time Temp Pulse Resp B/P (MAP) Pulse Ox O2 Delivery O2 Flow Rate FiO2 07/03/24 12:30 98.1 78 18 125/48 Room Air 07/03/24 12:20 98.1 79 18 119/47 Room Air 07/03/24 12:15 97.7 86 19 120/56 100 Room Air 07/03/24 12:13 98.1 88 20 131/55 07/03/24 11:14 78 18 07/03/24 08:30 100.2 07/03/24 08:00 100.2 100 19 130/60 98 Room Air 07/03/24 08:00 98 Room Air* 0 07/03/24 06:27 80 18 N/A Room Air 07/03/24 06:27 80 18 Laboratory: [ ] Laboratory: Test 07/03/24 11:41 07/03/24 04:26 07/02/24 08:50 07/02/24 03:48 Range/Units Whole Blood Glucose 93 70-110 MG/DL White Blood Count 7.5 4.8-10.8 K/uL Red Blood Count 2.50 L 4.00-5.50 MIL/uL Hemoglobin 6.9 *L 12.0-16.0 g/dL Hematocrit 21.7 L 36-48 % Mean Corpuscular Volume 86.8 79-99 fL Mean Corpuscular Hemoglobin 27.6 27.0-33.0 pg Mean Corpuscular Hemoglobin Concent 31.8 L 32.0-36.0 g/dL Red Cell Distribution Width 18.9 H 11.0-15.5 % Platelet Count 355 130-400 K/uL Mean Platelet Volume 8.3 7.5-10.5 fL Nucleated Red Blood Cells 0.0 0.0-0.19 % Prothrombin Time 10.7 9.6-11.6 SEC Prothromb Time International Ratio 0.99 0.85-1.15 Immature Granulocyte % (Auto) 0.4 0-1 % Neutrophils (%) (Auto) 69.7 40.0-77.0 % Lymphocytes (%) (Auto) 21.2 21.0-51.0 % Monocytes (%) (Auto) 3.7 3.0-13.0 % Eosinophils (%) (Auto) 4.7 0.0-8.0 % Basophils (%) (Auto) 0.3 0.0-5.0 % Neutrophils # (Auto) 7.0 1.8-7.7 K/uL Lymphocytes # (Auto) 2.1 1.0-4.8 K/uL Monocytes # (Auto) 0.4 0.1-1.0 K/uL Eosinophils # (Auto) 0.47 0.00-0.70 K/uL Basophils # (Auto) 0.03 0.00-0.20 K/uL Absolute Immature Granulocyte (auto 0.04 0-1 K/uL Sodium Level 136 136-145 mmol/L Potassium Level 3.8 3.5-5.1 mmol/L Chloride Level 106 101-111 mmol/L Carbon Dioxide Level 26 21-32 mmol/L Blood Urea Nitrogen 5 L 7-18 mg/dL Creatinine 0.5 0.5-1.0 mg/dL Glomerular Filtration Rate Calc 95 >90 mL/min Random Glucose 95 70-105 mg/dL Total Calcium 7.1 L 8.5-10.1 mg/dL Magnesium Level 2.00 1.80-2.40 mg/dL Total Bilirubin 0.1 #L 0.2-1.0 mg/dL Aspartate Amino Transf (AST/SGOT) 30 10-37 U/L Alanine Aminotransferase (ALT/SGPT) 14 12-78 U/L Alkaline Phosphatase 81 50-136 U/L Total Protein 4.2 L 6.0-8.3 g/dL Albumin 1.3 L 3.5-5.0 g/dL Test 07/01/24 20:30 Range/Units Urine Color YELLOW YELLOW Urine Appearance CLEAR CLEAR Urine pH 5.5 5.0-8.0 Urine Specific [place] 1.014 1.001-1.031 Urine Protein 10 H NEGATIVE mg/dL Urine Glucose (UA) NEGATIVE NEGATIVE mg/dL Urine Ketones 20 H NEGATIVE mg/dL Urine Occult Blood NEGATIVE NEGATIVE Urine Nitrate NEGATIVE NEGATIVE Urine Bilirubin NEGATIVE NEGATIVE mg/dL Urine Urobilinogen 0.2 0.2-1.0 mg/dL Urine Leukocyte Esterase 25 H NEGATIVE Mireya/uL Urine RBC 2-5 H 0-1 /HPF Urine WBC 6-10 H 0-1 /HPF Urine Squamous Epithelial Cells MOD 0-2 /HPF Urine Bacteria RARE None Seen /HPF Urine Hyaline Casts 2-5 H 0-1 /LPF /LPF Current Medications Medications (Trade) Dose Ordered Sig/Rebekah Route PRN Reason Start Time Stop Time Status Last Admin Dose Admin Acetaminophen (TYLenol 325MG TAB) 650 mg Q6H PRN PO FEVER/MILD PAIN LEVEL 1-3 06/28/24 22:30 07/28/24 22:29 07/03/24 08:30 650 MG Acetaminophen (TYLenol 650MG SUPPOSITORY) 650 mg Q6H PRN RC FEVER / MILD PAIN 1-3 IF NPO 06/28/24 22:30 07/28/24 22:29 Acetaminophen/ Hydrocodone Bitart (NORco 5/325MG) 1 tab Q6H PRN PO MODERATE PAIN (4-6) 06/28/24 22:30 07/03/24 22:29 07/02/24 23:34 1 TAB Acetylcysteine (MUComyst 20% 4ML) 800 mg [id number] NEB 06/29/24 00:00 07/29/24 00:00 07/03/24 11:14 800 MG Amlodipine Besylate (NorvASC 5MG TAB) 5 mg DAILY PO 07/01/24 09:00 07/31/24 08:59 07/03/24 08:31 5 MG Ascorbic Acid (Vitamin C 500mg Tab) 500 mg DAILY PO 06/29/24 09:00 07/29/24 08:59 07/03/24 08:31 500 MG Azithromycin (Azithromycin 500mg+NS 250ml) 500 mg Q24H IV 06/29/24 22:30 07/02/24 15:39 DC 07/01/24 20:19 500 MG Benzonatate (Tessalon 100mg Caps) 100 mg BID PRN PO COUGH 06/30/24 11:30 07/30/24 11:29 Ceftriaxone Sodium (ROCEphine 1G INJ) 1 gm Q24H IVP 06/29/24 22:30 07/02/24 15:39 DC 07/01/24 20:18 1 GM Dextrose/Lactated Ringer's 1,000 ml @ 75 mls/hr [id number] IV 06/30/24 06:00 06/30/24 17:05 DC 06/30/24 06:21 75 MLS/HR Ferrous Sulfate (Ferrous Sulfate) 325 mg BID PO 07/01/24 09:00 07/29/24 08:59 07/03/24 08:31 325 MG Ferrous Sulfate (Ferrous Sulfate) 325 mg DAILY PO 06/29/24 09:00 07/01/24 08:44 DC 07/01/24 08:36 325 MG Insulin Human Regular (humuLIN R 100 UNIT/ML 3ML) INSULIN SLIDING SCAL... ACHS SQ 07/01/24 21:00 07/31/24 20:59 Insulin Human Regular (humuLIN R 100 UNIT/ML 3ML) INSULIN SLIDING SCAL... Q6H6 SQ 06/29/24 00:00 07/01/24 19:12 DC Ipratropium [place] (AtrovENT UD) 0.5 mg [id number] IH 06/29/24 00:00 07/29/24 00:00 07/03/24 11:14 0.5 MG Lactated Ringer's 1,000 ml @ 75 mls/hr [id number] IV 06/29/24 10:30 06/30/24 06:01 DC 06/30/24 01:37 75 MLS/HR Losartan Potassium (CozAAR 100MG TAB) 100 mg DAILY PO 07/01/24 09:00 07/31/24 08:59 07/03/24 08:30 100 MG Magnesium Sulfate 50 ml @ 0 mls/hr PROTOCOL PRN IV PROTOCOL 06/30/24 13:00 07/30/24 12:59 06/30/24 13:11 25 MLS/HR Metoclopramide HCl (regLAN 10 MG TAB) 10 mg BIDAC PO 06/30/24 16:30 07/30/24 16:29 07/03/24 06:11 10 MG Metoprolol Succinate (TopROL XL) 25 mg DAILY PO 07/01/24 09:00 07/31/24 08:59 07/03/24 08:31 25 MG Metoprolol Tartrate (loprESSOR) 2.5 mg Q4H PRN IV INCREASED HEART RATE 06/30/24 11:30 07/30/24 11:29 Pantoprazole Sodium (PROTonix 40MG INJ) 40 mg BID IVP 06/29/24 09:00 07/29/24 08:59 07/03/24 08:29 40 MG Polyethylene Glycol (MIRalax 3350 17 GM POWD.PACK) 17 gm DAILY PO 06/29/24 09:00 07/29/24 08:59 07/03/24 08:29 17 GM Polyethylene Glycol/ Electrolytes (Golytely/Colyte Soln) 4,000 ml ONCE STAT PO 06/29/24 17:48 06/29/24 17:51 DC 06/29/24 18:02 4,000 ML Potassium Chloride (K-Dur/Klor-Con 20meq) 20 meq AD PRN PO POTASSIUM PROTOCOL 06/30/24 17:00 07/30/24 16:59 07/02/24 04:57 20 MEQ Potassium Chloride (KCl 10% Elixir 20meq/15ml) 20 meq AD PRN PO POTASSIUM PROTOCOL 06/30/24 17:00 07/30/24 16:59 07/02/24 09:01 20 MEQ Sodium Chloride 1,000 ml @ 100 mls/hr Q10H IV 06/28/24 22:30 06/29/24 10:15 DC 06/29/24 09:35 100 MLS/HR Diagnostics / Radiology: [COPY/PASTE HERE IF NO REPORTS PLEASE DELETE SECTION] Assessment: GI bleed Acute blood loss anemia DM HTN Plan: RANDALL ZUÑIGA INSERT OPERATOR Jul 03, 2024 13:47
--- NOTE | 2024-07-03 14:24 | PN ---
[facility] PROGRESS NOTE Date Patient Seen: Jul 03, 2024 Time of Visit: 14:23 Supervising Physician: [Dr. Reeves] Primary Care Physician: Dr. Jefferson Outpatient Specialists: [ ] Inpatient Consults: GI Dr Mendoza PROBLEM LIST: Severe sepsis likely from pneumonia, POA Acute blood loss anemia, POA GI bleed, POA S/P EGD gastritis biopsied on 06/30/24 One nonbleeding angioectasia in the duodenum Normal 2nd portion of the duodenum Colonoscopy 06/30/24-patent end-to-side ileocolonic anastomosis, multiple nonbleeding colonic angioectasia no specimen collected. Acute kidney injury, resolved POA Community-acquired pneumonia, treated POA, Leukocytosis, POA Right leg pain, DVT rule out. Mild interstitial fibrosis with bronchiectasis POA INTERVAL HISTORY: 06/29-Patient is awake alert and oriented x3 South African-speaking reports generalized weakness. No major overnight events as per RN. No further bloody stools or bloody emesis reported by patient or family members. Patient is hemodynamically stable afebrile in the last 24 hours. H&H has improved status post 1 unit of PRBCs it is 8.5/26.1 and stabilized. White count this morning trending down 11.3 neutrophils normalized. Chemistries sodium 137 potassium 3.9 carbon dioxide is 20 BUN 19 creatinine 0.8 GFR of 74 total calcium 7.6 total protein 5. 2 and albumin 1.8. Venous Doppler shows no evidence of DVT. On chest x-ray mild interstitial fibrosis with bronchiectasis. 06/30-patient is drowsy status post EGD with biopsy of gastritis no bleed angioectasia in the duodenum and colonoscopy with multiple no bleeding angiectasias no specimen collected from colonoscopy per report. White count 9.5 H&H 8.2/25.7 platelet count is [id number] sodium is 139 potassium 4.2 CO2 19. Influenza negative COVID-19 negative rapid strep negative. No growth two blood cultures for 48 hours. Once patient is more awake post sedation from endoscopy procedure she may be downgraded to medical-surgical. 07/02 patient is evaluated at bedside. Vitals were within normal limits. WBC is 10 today, hemoglobin 7.7, platelets 379. BNP is within normal limits with a creatinine 0.5. Blood cultures are negative. Patient did have EGD and colonoscopy which showed an angio ectasia in the duodenum as well multiple, nonbleeding angioectasias in the colon. No biopsies were taken per report. Per discussion with patient and daughter at bedside, they stated she was recently placed on Xarelto by her PCP but does not recall the reason. She denies any history of atrial fibrillation or blood clots. Was advised that due to findings on EGD/colonoscopy as well as no current indication for DOAC, we will discontinue. Patient advised to follow with PCP for clarification upon adair currie. Patient is tolerating diet without nausea, vomiting or abdominal pain. She has not had a bowel movement today. She continues to work with physical therapy, pending SNF for continued physical therapy. 07/03 Patient's hgb dropped to 6.9. Currently receiving 1 PRBC. No current anticoagulation. Daughter at bedside updated on patient status and plan of care. She was informed of findings on EGD/colonoscopy. The patient and daughter were explained the risks and benefits of continuing anticoagulation and they wish to discontinue given her anemia requiring multiple transfusions. Denies any melena or hematocheezia. REVIEW OF SYSTEMS: General: No malaise or fever. Neurological: No fainting episodes or seizures. HEENT: No nasal congestion or nasal secretion. Respiratory: No cough, shortness of breath, or wheezing Cardiac: No chest pain or palpitations. Gastrointestinal: No vomiting or diarrhea. Genitourinary: No dysuria hematuria. Skin: No rashes or lesions. Hematological: No bruises or bleeding. Musculoskeletal: No joint pains or arthralgias. Psychiatric: No depression or panic attacks. PHYSICAL EXAM: GENERAL: alert, weak, awake oriented x 3 HEENT: EOMI, Sclera non icteric, moist mucosa NECK: Supple, no JVD, trachea midline LUNGS: Coarse rhonchi breath sounds to right lower lobe. No wheezes HEART: Regular rate and rhythm. Normal S1 and S2, without murmurs ABD: Abdomen soft, nontender. Bowel sounds present EXT: No clubbing cyanosis or edema, right leg pain NEURO: Alert and oriented to person, follows commands Vital Signs (last 8hr) Date Time Temp Pulse Resp B/P (MAP) Pulse Ox O2 Delivery O2 Flow Rate FiO2 07/03/24 12:30 98.1 78 18 125/48 Room Air 07/03/24 12:20 98.1 79 18 119/47 Room Air 07/03/24 12:15 97.7 86 19 120/56 100 Room Air 07/03/24 12:13 98.1 88 20 131/55 07/03/24 11:14 78 18 07/03/24 08:30 100.2 07/03/24 08:00 100.2 100 19 130/60 98 Room Air 07/03/24 08:00 98 Room Air* 0 21 07/03/24 06:27 80 18 N/A Room Air 07/03/24 06:27 80 18 LABS: Hematology Labs: Test 07/03/24 04:26 07/02/24 03:48 Range/Units White Blood Count 7.5 4.8-10.8 K/uL Red Blood Count 2.50 L 4.00-5.50 MIL/uL Hemoglobin 6.9 *L 12.0-16.0 g/dL Hematocrit 21.7 L 36-48 % Mean Corpuscular Volume 86.8 79-99 fL Mean Corpuscular Hemoglobin 27.6 27.0-33.0 pg Mean Corpuscular Hemoglobin Concent 31.8 L 32.0-36.0 g/dL Red Cell Distribution Width 18.9 H 11.0-15.5 % Platelet Count 355 130-400 K/uL Mean Platelet Volume 8.3 7.5-10.5 fL Nucleated Red Blood Cells 0.0 0.0-0.19 % Immature Granulocyte % (Auto) 0.4 0-1 % Neutrophils (%) (Auto) 69.7 40.0-77.0 % Lymphocytes (%) (Auto) 21.2 21.0-51.0 % Monocytes (%) (Auto) 3.7 3.0-13.0 % Eosinophils (%) (Auto) 4.7 0.0-8.0 % Basophils (%) (Auto) 0.3 0.0-5.0 % Neutrophils # (Auto) 7.0 1.8-7.7 K/uL Lymphocytes # (Auto) 2.1 1.0-4.8 K/uL Monocytes # (Auto) 0.4 0.1-1.0 K/uL Eosinophils # (Auto) 0.47 0.00-0.70 K/uL Basophils # (Auto) 0.03 0.00-0.20 K/uL Absolute Immature Granulocyte (auto 0.04 0-1 K/uL Chemistry Labs: Test 07/03/24 11:41 07/02/24 03:48 Range/Units Whole Blood Glucose 93 70-110 MG/DL Sodium Level 136 136-145 mmol/L Potassium Level 3.8 3.5-5.1 mmol/L Chloride Level 106 101-111 mmol/L Carbon Dioxide Level 26 21-32 mmol/L Blood Urea Nitrogen 5 L 7-18 mg/dL Creatinine 0.5 0.5-1.0 mg/dL Glomerular Filtration Rate Calc 95 >90 mL/min Random Glucose 95 70-105 mg/dL Total Calcium 7.1 L 8.5-10.1 mg/dL Magnesium Level 2.00 1.80-2.40 mg/dL Total Bilirubin 0.1 #L 0.2-1.0 mg/dL Aspartate Amino Transf (AST/SGOT) 30 10-37 U/L Alanine Aminotransferase (ALT/SGPT) 14 12-78 U/L Alkaline Phosphatase 81 50-136 U/L Total Protein 4.2 L 6.0-8.3 g/dL Albumin 1.3 L 3.5-5.0 g/dL Coagulation Labs: Test 07/02/24 08:50 Range/Units Prothrombin Time 10.7 9.6-11.6 SEC Prothromb Time International Ratio 0.99 0.85-1.15 DIAGNOSTICS / RADIOLOGY RESULTS: [reviewed] PLAN Monitor Hgb Discontinue antibiotics Follow urine culture Follow respiratory culture PT to eval and treat Discontinue xarelto unless indicated, will need to reevaluate risk vs benefit if indicated CM for SNF NEURO: Minimize central acting medications as possible. Maintain fall precautions, adequate lighting during the day PULMONARY: Supplemental 02 as needed. Maintain aspiration precautions at all times CARDIOVASCULAR: Follow hemodynamics. Vital signs per facility protocol GI & NUTRITION: Continue with nutritional support. Continue stool softeners and laxatives as needed. KIDNEYS & ELECTROLYTES: Strict monitoring of intake, output and overall fluid balance. Avoid nephrotoxic medications to the extent possible. Medications to be dosed according to renal function. Monitor electrolytes and replace as needed ENDOCRINE: Maintain blood glucose between 100-180 at all times. Hypoglycemia protocol in place INFECTIOUS DISEASE: Trend temperature, WBC and procalcitonin level Follow cultures, deescalate antibiotics as soon as possible. Panculture if new onset fever ONCOLOGY/HEMATOLOGY/COAGULATION: Monitor for s/s of bleeding Monitor hemoglobin, coagulation studies as needed SKIN: Pressure ulcer prevention per facility protocol Specialty mattress ORTHO/REHAB: Continue PT/OT Prophylaxis: Continue GI and DVT prophylaxis Code Status: Full Resuscitation Disposition: TBD Other: Total patient care time exceeds 35 minutes excluding all procedures. JOSE CARLOS ANTOINE Jul 03, 2024 14:24
[2024-07-03] MEDS ORDERED: LACTULOSE 20 GM/30 ML UDCUP PO PRN (20:00)
[2024-07-04] VITALS (9 sets, daily range): BP systolic 127–153; BP diastolic 60–64; PULSE 76–106; RESP 17–18; TEMP 98.1–98.3; O2SAT 97–99
[2024-07-04 07:09] LABS: HEMATOCRIT 30.2 % (36-48)
--- NOTE | 2024-07-04 12:51 | DS ---
[facility] DISCHARGE SUMMARY Date Patient Seen: Jul 04, 2024 Time of Visit: 12:50 Supervising Physician: [Dr. Reeves] Primary Care Physician: Dr. Jefferson Outpatient Specialists: [ ] Inpatient Consults: GI Dr Mendoza PROBLEM LIST: Severe sepsis likely from pneumonia, POA Acute blood loss anemia, POA GI bleed, POA S/P EGD gastritis biopsied on 06/30/24 One nonbleeding angioectasia in the duodenum Normal 2nd portion of the duodenum Colonoscopy 06/30/24-patent end-to-side ileocolonic anastomosis, multiple nonbleeding colonic angioectasia no specimen collected. Acute kidney injury, resolved POA Community-acquired pneumonia, treated POA, Leukocytosis, POA Right leg pain, DVT rule out. Mild interstitial fibrosis with bronchiectasis POA HOSPITAL COURSE: HPI (per admitting provider) 79-year-old female with past medical history of hypertension, dm type 2, previous hip replacement who presented to ED with complaint of generalized body weakness and productive cough and found to have possible community-acquired pneumonia, acute blood loss anemia, acute kidney injury, severe sepsis and possible GI bleed. Patient was seen and examined in ED with daughter present at bedside. Patient is Frisian-speaking only however daughter is able to translate during evaluation. According to her she has been having issues with generalized body weakness, fatigue, and cough and dark tarry stool, and she has been bed-bound for the past weeks and unable to get up on her own. The patient is also complaining of right leg pain. This was initially discussed with her PCP and was given anticoagulant for DVT prophylaxis. In ED stat chest x-ray was done and showed bilateral infiltrates, [place] [address], hemoglobin of 6.3, lactic acid of 2.8, and creatinine level of 1.2. Initial evaluation in ED patient was tachycardic, and borderline hypotensive improved with IV bolus. In ED patient was initiated on c eftriaxone azithromycin for cap coverage, and was ordered 1 unit PRBC. She was admitted for treatment of acute blood loss anemia. Patient underwent EGD/colonoscopy on 06/30 with findings of non bleeding angioectasias in duodenum and colon. She was on xarelto prior to admission, per daughter was started by PCP to prevent blood clots. Patient and family were informed to stop xarelto unless indicated. Her hgb stablized to 9.7 after stopping xarelto and receiving blood transfusion. She denied any melena or hematocheezia upon discharge. She was recommended to SNF for continued physical therapy however she declined. Patient was discharged home and advised to follow up with PCP in AM for reevaluation and repeat CBC as needed. Stop xarelto. F/U with GI outpatient for EGD/colonoscopy results. She was treated with 5 days rocephin and 4 days azithromycin for pneumonia. No fever or cough upon discharge. The patient was treated for the following problems: ACTIVE PROBLEM LIST FOR THE HOSPITALIZATION: Severe sepsis likely from pneumonia, POA Acute blood loss anemia, POA GI bleed, POA S/P EGD gastritis biopsied on 06/30/24 One nonbleeding angioectasia in the duodenum Normal 2nd portion of the duodenum Colonoscopy 06/30/24-patent end-to-side ileocolonic anastomosis, multiple nonbleeding colonic angioectasia no specimen collected. Acute kidney injury, resolved POA Community-acquired pneumonia, treated POA, Leukocytosis, POA Right leg pain, DVT rule out. 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 Stop Xarelto. Pt hemodynamically stable and afebrile at time of discharge. PCP notified of patients admission, hospital course and discharge. Continued Medications: Amlodipine Besylate (Amlodipine Besylate) 5 Mg Tablet 1 TAB PO DAILY for 30 Days, #30 TAB 0 Refills Benzonatate (Benzonatate) 100 Mg Capsule 100 MG PO BID PRN for COUGH, CAP Dorzolamide HCl/Timolol Maleat (Dorzolamide-Timolol Eye Drops) 22.3 Mg-6.8 Mg/Ml Drops 1 DROP OP BID for CATARATS TO BOTH EYES, #10 ML 0 Refills Ergocalciferol (Vitamin D2) (Vitamin D2) 1,250 Mcg (71926 Unit) Capsule 1 CAP PO QWEEK for 28 Days, #4 CAP 0 Refills Losartan Potassium (Losartan Potassium) 100 Mg Tablet 1 TAB PO DAILY for 30 Days, #30 TAB 0 Refills Metoclopramide HCl (Metoclopramide HCl) 10 Mg Tablet 1 TAB PO BIDAC for 30 Days, #120 TAB 0 Refills Metoprolol Succinate (Metoprolol Succinate) 25 Mg Tab.er.24h 1 TAB PO DAILY for 30 Days, #30 TAB 0 Refills Pantoprazole Sodium (Protonix) 40 Mg Tablet.dr 1 TAB PO DAILY for 30 Days, #30 TAB 0 Refills Discontinued Medications: Rivaroxaban (Xarelto) 20 Mg Tablet 1 TAB PO DAILY for 30 Days, #30 TAB 0 Refills with food Sulfamethoxazole/Trimethoprim (Bactrim Ds Tablet) 800 Mg-160 Mg Tablet 1 TAB PO BID for 10 Days, #20 TAB 0 Refills PHYSICAL EXAM: GENERAL: alert, weak, awake oriented x 3 HEENT: EOMI, Sclera non icteric, moist mucosa NECK: Supple, no JVD, trachea midline LUNGS: Coarse rhonchi breath sounds to right lower lobe. No wheezes HEART: Regular rate and rhythm. Normal S1 and S2, without murmurs ABD: Abdomen soft, nontender. Bowel sounds present EXT: No clubbing cyanosis or edema, right leg pain NEURO: Alert and oriented to person, follows commands FOLLOW-UP: Follow-up with PCP in 2-3 days for reevaluation and repeat CBC. Stop xarelto. No abx indicated upon discharge. F/U with GI for EGD/colonoscopy results. RECOMMENDATIONS: See Discharge Instructions This case was seen and discussed with my supervising physician. More than 30 minutes spent on discharge process, including evaluation of the patient, discussion with nursing staff, medication reconciliation and follow-up appointments JOSE CARLOS ANTOINE Jul 04, 2024 12:51
--- NOTE | 2024-07-04 17:36 | PN ---
GASTROENTEROLOGY PROGRESS NOTE Date of Consultation: Jul 04, 2024 Time of Consultation: 17:35 Events / Notes: [ ] Review of Systems: CONSTITUTIONAL: No malaise or change in sensation of wellbeing. ENMT: No rhinorrhea, otorrhea, sinus pain, ear ache. CARDIOVASCULAR: No angina, palpitations, orthopnea or paroxysmal dyspnea. RESPIRATORY: No SOB. GASTROINTESTINAL: No abdominal pain, nausea, vomiting, diarrhea, hematemesis, melena or change in the patient's habitual bowel movements consistency/number. GENITOURINARY: No dysuria, hematuria or change in bladder continence. MUSCULOSKELETAL: No new muscle pain or decrease in muscular strength. No new joint swelling, redness or tenderness. SKIN: No new rash. Physical Exam: GEN: Awake, alert, oriented in person, time and place, and in no acute distress. HEENT: No sinus tenderness. Tympanic membranes were not examined. No rhinorrhea. Oral pharyngeal mucosa is pink, moist and within normal limits. Neck is supple with no cervical lymphadenopathy, thyromegaly or JVD. CHEST: Inspection, palpation and percussion of the chest were unremarkable. Lung auscultation revealed normal breath sounds bilaterally. CARDIAC: PMI is within normal limits. Heart sounds are regular. Normal S1, S2. No gallop or murmur. ABD: Soft, non-tender and not distended. No peritoneal signs on palpation. No organomegaly. Normal bowel sounds. EXT: No cyanosis or clubbing. No edema. SKIN: Intact. No rashes. JOINTS: No evidence of synovitis or acute arthritis. NEURO: Alert and oriented to name, place and person. Cranial nerve examination is unremarkable. No focal motor deficits. Normal speech. Gait is normal. Strength is normal. Vital Signs (last 8hr) Date Time Temp Pulse Resp B/P (MAP) Pulse Ox O2 Delivery O2 Flow Rate FiO2 07/04/24 16:00 98.2 94 18 127/61 97 Room Air 07/04/24 12:00 98.1 106 18 138/64 98 Room Air 07/04/24 11:19 102 17 07/04/24 11:16 106 17 N/A Room Air 21 07/04/24 10:15 99 Room Air* 0 21 Laboratory: [ ] Laboratory: Test 07/04/24 16:17 07/04/24 07:00 07/03/24 04:26 Range/Units Whole Blood Glucose 91 70-110 MG/DL Hemoglobin 9.7 #L 12.0-16.0 g/dL Hematocrit 30.2 #L 36-48 % White Blood Count 7.5 4.8-10.8 K/uL Red Blood Count 2.50 L 4.00-5.50 MIL/uL Mean Corpuscular Volume 86.8 79-99 fL Mean Corpuscular Hemoglobin 27.6 27.0-33.0 pg Mean Corpuscular Hemoglobin Concent 31.8 L 32.0-36.0 g/dL Red Cell Distribution Width 18.9 H 11.0-15.5 % Platelet Count 355 130-400 K/uL Mean Platelet Volume 8.3 7.5-10.5 fL Nucleated Red Blood Cells 0.0 0.0-0.19 % Current Medications Medications (Trade) Dose Ordered Sig/Rebekah Route PRN Reason Start Time Stop Time Status Last Admin Dose Admin Acetaminophen (TYLenol 325MG TAB) 650 mg Q6H PRN PO FEVER/MILD PAIN LEVEL 1-3 06/28/24 22:30 07/28/24 22:29 07/03/24 22:36 650 MG Acetaminophen (TYLenol 650MG SUPPOSITORY) 650 mg Q6H PRN RC FEVER / MILD PAIN 1-3 IF NPO 06/28/24 22:30 07/28/24 22:29 Acetaminophen/ Hydrocodone Bitart (NORco 5/325MG) 1 tab Q6H PRN PO MODERATE PAIN (4-6) 06/28/24 22:30 07/03/24 22:29 DC 07/02/24 23:34 1 TAB Acetylcysteine (MUComyst 20% 4ML) 800 mg [id number] NEB 06/29/24 00:00 07/29/24 00:00 07/04/24 11:12 800 MG Amlodipine Besylate (NorvASC 5MG TAB) 5 mg DAILY PO 07/01/24 09:00 07/31/24 08:59 07/04/24 10:23 5 MG Ascorbic Acid (Vitamin C 500mg Tab) 500 mg DAILY PO 06/29/24 09:00 07/29/24 08:59 07/04/24 10:23 500 MG Azithromycin (Azithromycin 500mg+NS 250ml) 500 mg Q24H IV 06/29/24 22:30 07/02/24 15:39 DC 07/01/24 20:19 500 MG Benzonatate (Tessalon 100mg Caps) 100 mg BID PRN PO COUGH 06/30/24 11:30 07/30/24 11:29 Ceftriaxone Sodium (ROCEphine 1G INJ) 1 gm Q24H IVP 06/29/24 22:30 07/02/24 15:39 DC 07/01/24 20:18 1 GM Dextrose/Lactated Ringer's 1,000 ml @ 75 mls/hr [id number] IV 06/30/24 06:00 06/30/24 17:05 DC 06/30/24 06:21 75 MLS/HR Ferrous Sulfate (Ferrous Sulfate) 325 mg BID PO 07/01/24 09:00 07/29/24 08:59 07/04/24 10:23 325 MG Ferrous Sulfate (Ferrous Sulfate) 325 mg DAILY PO 06/29/24 09:00 07/01/24 08:44 DC 07/01/24 08:36 325 MG Insulin Human Regular (humuLIN R 100 UNIT/ML 3ML) INSULIN SLIDING SCAL... ACHS SQ 07/01/24 21:00 07/31/24 20:59 Insulin Human Regular (humuLIN R 100 UNIT/ML 3ML) INSULIN SLIDING SCAL... Q6H6 SQ 06/29/24 00:00 07/01/24 19:12 DC Ipratropium [place] (AtrovENT UD) 0.5 mg [id number] IH 06/29/24 00:00 07/29/24 00:00 07/04/24 11:12 0.5 MG Lactated Ringer's 1,000 ml @ 75 mls/hr [id number] IV 06/29/24 10:30 06/30/24 06:01 DC 06/30/24 01:37 75 MLS/HR Lactulose (Constulose 20gm/ 30ml Udcup) 20 gm BID PRN PO CONSTIPATION 07/03/24 20:00 08/02/24 19:59 Losartan Potassium (CozAAR 100MG TAB) 100 mg DAILY PO 07/01/24 09:00 07/31/24 08:59 07/04/24 10:30 100 MG Magnesium Sulfate 50 ml @ 0 mls/hr PROTOCOL PRN IV PROTOCOL 06/30/24 13:00 07/30/24 12:59 06/30/24 13:11 25 MLS/HR Metoclopramide HCl (regLAN 10 MG TAB) 10 mg BIDAC PO 06/30/24 16:30 07/30/24 16:29 07/03/24 16:53 10 MG Metoprolol Succinate (TopROL XL) 25 mg DAILY PO 07/01/24 09:00 07/31/24 08:59 07/04/24 10:23 25 MG Metoprolol Tartrate (loprESSOR) 2.5 mg Q4H PRN IV INCREASED HEART RATE 06/30/24 11:30 07/30/24 11:29 Pantoprazole Sodium (PROTonix 40MG INJ) 40 mg BID IVP 06/29/24 09:00 07/29/24 08:59 07/04/24 10:24 40 MG Polyethylene Glycol (MIRalax 3350 17 GM POWD.PACK) 17 gm DAILY PO 06/29/24 09:00 07/29/24 08:59 07/03/24 08:29 17 GM Polyethylene Glycol/ Electrolytes (Golytely/Colyte Soln) 4,000 ml ONCE STAT PO 06/29/24 17:48 06/29/24 17:51 DC 06/29/24 18:02 4,000 ML Potassium Chloride (K-Dur/Klor-Con 20meq) 20 meq AD PRN PO POTASSIUM PROTOCOL 06/30/24 17:00 07/30/24 16:59 07/02/24 04:57 20 MEQ Potassium Chloride (KCl 10% Elixir 20meq/15ml) 20 meq AD PRN PO POTASSIUM PROTOCOL 06/30/24 17:00 07/30/24 16:59 07/02/24 09:01 20 MEQ Sodium Chloride 1,000 ml @ 100 mls/hr Q10H IV 06/28/24 22:30 06/29/24 10:15 DC 06/29/24 09:35 100 MLS/HR Diagnostics / Radiology: [COPY/PASTE HERE IF NO REPORTS PLEASE DELETE SECTION] Assessment: GI bleed Acute blood loss anemia DM HTN Plan: RANDALL ZUÑIGA DATA ENTRY ASSOCIATE Jul 04, 2024 17:35
== END 2024-07-04 18:30 | disposition home or self-care (01) | DRG 871 ==
LOC: EDH 19:14 → EDHIP 22:12 → OBSVTOIN 22:12 → 2CH 06-29 03:07 → 4BH 07-01 11:23
PROVIDERS: ADMIT Internal Medicine; ATTEND Internal Medicine
PROC: 30233N1 Transfusion of Nonautologous Red Blood Cells into Peripheral Vein, Percutaneous Approach (ICD-10-PCS; 2024-06-28)
PROC: 0DB78ZX Excision of Stomach, Pylorus, Via Natural or Artificial Opening Endoscopic, Diagnostic (ICD-10-PCS; principal; 2024-06-30)
PROC: 0DJD8ZZ Inspection of Lower Intestinal Tract, Via Natural or Artificial Opening Endoscopic (ICD-10-PCS; 2024-06-30)
PROC: 0T9B70Z Drainage of Bladder with Drainage Device, Via Natural or Artificial Opening (ICD-10-PCS; 2024-07-01)
DX: A41.89 Other specified sepsis (principal); J18.9 Pneumonia, unspecified organism; K55.21 Angiodysplasia of colon with hemorrhage; K29.71 Gastritis, unspecified, with bleeding; K31.811 Angiodysplasia of stomach and duodenum with bleeding; N17.9 Acute kidney failure, unspecified; J47.0 Bronchiectasis with acute lower respiratory infection; D62 Acute posthemorrhagic anemia; E87.20 Acidosis, unspecified; K21.9 Gastro-esophageal reflux disease without esophagitis; R65.20 Severe sepsis without septic shock; I10 Essential (primary) hypertension; J84.10 Pulmonary fibrosis, unspecified; E11.9 Type 2 diabetes mellitus without complications; K44.9 Diaphragmatic hernia without obstruction or gangrene; Z20.822 Contact with and (suspected) exposure to COVID-19; M79.604 Pain in right leg; Z96.641 Presence of right artificial hip joint; Z74.01 Bed confinement status; Z79.01 Long term (current) use of anticoagulants; Z79.899 Other long term (current) drug therapy
CPT/HCPCS: 36415; 45378; 71045; 80048; 80053; 81001; 82270; 82550; 82948; 83540; 83550; 83605; 83735; 84100; 84132; 84145; 84443; 84484; 85014; 85018; 85025; 85027; 85610; 86850; 86900; 86901; 86923; 87040; 87071; 87086; 87205; 87635; 87804; 87880; 88305; 88312; 93005; 93970; 94640; 94664; 96365; 96375; G0378; J0456; J0696; J2003; J2470; J2704; J3475; J3490; J7030; P9016; A4215; A4600; A4620; A4657; C1877

== ENCOUNTER 2024-10-02 08:07 | Emergency (ER) | payer OTHER ==
[~2024-10-02] VITALS: Ht 160 cm; Wt 54.4 kg
[~2024-10-02 08:07] MED LIST: AMLO-257 PO; APIX2.5T PO; DORZ10DR10 OP; ERGO500093 PO; LOSA100T59 PO; METO-408 PO; METO10TA3 PO; PANT40TA PO
--- NOTE | 2024-10-02 08:20 | ERN ---
General Chief Complaint: Knee Injury/Swelling Stated Complaint: KNEE PAIN Time Seen by MD: 08:09 Source: patient History of Present Illness Initial Comments 79-year-old female assisted resident coming in for evaluation of left leg pain. Per EMS and assisted patient has been complaining of left leg pain for one day. No trauma reported. Patient has a history of dementia so limited history. Allergies: Coded Allergies: No Known Allergies (Unverified Allergy, Unknown, 06/28/24) Home Meds Active Scripts Apixaban (Eliquis) 2.5 Mg Tablet, 1 TAB PO BID for 30 Days, #60 TAB 0 Refills Prov:JOSE CARLOS ANTOINE 08/17/24 Reported Medications Dorzolamide HCl/Timolol Maleat (Dorzolamide-Timolol Eye Drops) 22.3 Mg-6.8 Mg/Ml Drops, 1 DROP OP BID for CATARATS TO BOTH EYES, #10 ML 0 Refills 06/29/24 Pantoprazole Sodium (Protonix) 40 Mg Tablet.dr, 1 TAB PO DAILY for 30 Days, #30 TAB 0 Refills 06/29/24 Amlodipine Besylate (Amlodipine Besylate) 5 Mg Tablet, 1 TAB PO DAILY for 30 Days, #30 TAB 0 Refills 06/29/24 Losartan Potassium (Losartan Potassium) 100 Mg Tablet, 1 TAB PO DAILY for 30 Days, #30 TAB 0 Refills 06/29/24 Ergocalciferol (Vitamin D2) (Vitamin D2) 1,250 Mcg (76636 Unit) Capsule, 1 CAP PO QWEEK for 28 Days, #4 CAP 0 Refills 06/29/24 Metoclopramide HCl (Metoclopramide HCl) 10 Mg Tablet, 1 TAB PO BIDAC for 30 Days, #120 TAB 0 Refills 06/29/24 Metoprolol Succinate (Metoprolol Succinate) 25 Mg Tab.er.24h, 1 TAB PO DAILY for 30 Days, #30 TAB 0 Refills 06/29/24 Past Medical History Past Medical History: Dementia, Diabetes-Type II, High Cholesterol, Hypertension Medical History Other: ACID REFLUX Past Surgical History: Unknown Surgical History Other: LEFT HIP SX Family History Family History: Negative Social History Social History: Negative Female( History) History: Not Applicable ROS Dictation CONSTITUTIONAL: No chills, no fever, no weakness, no diaphoresis, no malaise. HEAD/FACE: No signs of trauma. EENT: No eye pain, no blurred vision, no tearing, no double vision, no ear pain, no ear discharge, no nose pain, no nasal congestion, no throat pain, no throat swelling, no mouth pain. RESPIRATORY: No cough, no orthopnea, no SOB, no stridor, no wheezing. CARDIOVASCULAR: No chest pain, no edema, no palpitations, no syncope. GASTROINTESTINAL/ABDOMINAL: No abdominal pain, no constipation, no diarrhea, no nausea, no vomiting. GENITOURINARY: No abnormal discharge, no dysuria, no frequent urination, no hematuria. No complaints of pain in the genitals. MUSCULOSKELETAL: No back pain, no gout, joint pain, no joint swelling, muscle pain, no muscle stiffness, no neck pain. INTEGUMENTARY: No change in color, no change in hair/nails, no dryness, no lesion, no lumps, no rash. NEUROLOGICAL/PSYCH: No anxiety, not depressed, no emotional problem, no headache, no numbness, no pre-existing deficit, no history of seizures, no t remors, no weakness. HEMATOLOGIC/LYMPHATIC: Not anemic, no history of blood clots, no apparent bleeding, no bruising, glands not swollen. All Systems Negative, Except as Noted. Physical Exam Physical Exam Dictation VITAL SIGNS: Reviewed. GENERAL APPEARANCE: Alert, disoriented, no acute distress, . HEAD AND FACE: Non-traumatic. EYES: PERRL, pink conjunctivas, eyelid no trauma, anterior chamber clear. EARS: Pinnas intact and no signs of trauma or erythema. Ear canals clear and no discharge. TMs no erythema. NOSE: No discharge, no bleeding. OROPHARYNX: Mouth normal, teeth no caries, tongue pink. Pharynx clear, no erythema. Tonsils no exudates, no abscesses noted. Mucous membrane moist. NECK: Supple, non-tender, no thyromegaly, no masses, no JVD, no bruits. BREAST: Deferred. CHEST: No tenderness, no crepitus, no paradoxical movement, no retractions. LUNGS: Clear, well-ventilated, symmetric, no rales, no wheezing, no rhonchi, no stridor, good breath sounds bilaterally. HEART: Regular rate, regular rhythm, no murmur, no gallops. VASCULAR: No peripheral edema. ABDOMEN: Soft, positive bowel sounds, nondistended, no guarding, nontender, no rebound, no masses no hepatomegaly, no splenomegaly, no Carney's sign, no hernias. RECTAL: Deferred. GENITAL: Deferred. NEUROLOGICAL: Normal speech, gross motor function intact, gross sensory fun ction intact. MUSCULOSKELETAL: Neck nontender, full range of motion, back nontender, full range of motion. EXTREMITIES: Nontender, full range of motion. Left leg tenderness on palpation, unable to flex and extend abduct adduct. SKIN: Color pink, dry, no turgor, no rash, no lacerations, no abrasions, no contusions. LYMPHATICS: Deferred. Results Laboratory and Microbiology Lab and Micro Result Laboratory Tests Test 10/02/24 08:52 White Blood Count 5.9 K/uL (4.8-10.8) Red Blood Count 3.16 MIL/uL (4.00-5.50) L Hemoglobin 9.2 g/dL (12.0-16.0) L Hematocrit 28.2 % (36-48) L Mean Corpuscular Volume 89.2 fL (79-99) Mean Corpuscular Hemoglobin 29.1 pg (27.0-33.0) Mean Corpuscular Hemoglobin Concent 32.6 g/dL (32.0-36.0) Red Cell Distribution Width 15.4 % (11.0-15.5) Platelet Count 402 K/uL (130-400) H Mean Platelet Volume 10.3 fL (7.5-10.5) Immature Granulocyte % (Auto) 0.3 % (0-1) Neutrophils (%) (Auto) 57.4 % (40.0-77.0) Lymphocytes (%) (Auto) 35.7 % (21.0-51.0) Monocytes (%) (Auto) 5.6 % (3.0-13.0) Eosinophils (%) (Auto) 0.8 % (0.0-8.0) Basophils (%) (Auto) 0.2 % (0.0-5.0) Neutrophils # (Auto) 3.4 K/uL (1.8-7.7) Lymphocytes # (Auto) 2.1 K/uL (1.0-4.8) Monocytes # (Auto) 0.3 K/uL (0.1-1.0) Eosinophils # (Auto) 0.05 K/uL (0.00-0.70) Basophils # (Auto) 0.01 K/uL (0.00-0.20) Absolute Immature Granulocyte (auto 0.02 K/uL (0-1) Nucleated Red Blood Cells 0.0 % (0.0-0.19) Sodium Level 147 mmol/L (136-145) H Potassium Level 3.4 mmol/L (3.5-5.1) L Chloride Level 113 mmol/L (101-111) H Carbon Dioxide Level 24 mmol/L (21-32) Blood Urea Nitrogen 16 mg/dL (7-18) Creatinine 0.4 mg/dL (0.5-1.0) L Glomerular Filtration Rate Calc 100 mL/min (>90) Random Glucose 92 mg/dL (70-105) Total Calcium 7.6 mg/dL (8.5-10.1) L Magnesium Level 1.20 mg/dL (1.80-2.40) L EKG/XRAY/US/CT/MRI X-RAY Comment [place] [id number] IMAGING REPORT Signed PATIENT: BUCKY PARRA MR#: [id number] : 1945 SEX: F AGE: 79 LOCATION: [facility] ORDER [id number] STATUS: [facility] REPORT#: [id number] SERVICE 0809 REASON: pain ORDERING PHYSICIAN: MARLENA ROMO MD PROCEDURE: KNEE 3V LT - KNEE 3VWS LT KNEE 3VWS LT HISTORY: Pain COMPARISON: None TECHNIQUE: 3 images of left knee were obtained. FINDINGS: There is no acute displaced fracture or dislocation. Vascular calcifications are seen. Degenerative changes are seen. IMPRESSION: 1. Findings as described above. DICTATED BY: AYALA SIMS MD DATE: 10/02/24 1024 ELECTRONICALLY SIGNED BY: AYALA SIMS MD DATE: 10/02/24 1028 [place] [address] [address] [place] [id number] IM[place] REPORT Signed PATIENT: BUCKY PARRA MR#: [id number] : 1945 SEX: F AGE: 79 LOCATION: [facility] ORDER 9 STATUS: REG ER REPORT#: [id number] SERVICE 08 REASON: pain ORDERING PHYSICIAN: MARLENA ROMO MD PROCEDURE: HIP U 2V L - HIP UNILAT 2-3VW LEFT HIP UNILAT 2-3VW LEFT HISTORY: Pain COMPARISON: None TECHNIQUE: 2 images of left hip were obtained. 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 Vascular calcifications are seen. Bony osteopenia is seen. There is no acute displaced fracture or dislocation. Degenerative changes are seen. IMPRESSION: 1. Findings as described above. DICTATED BY: AYALA SIMS MD DATE: 10/02/241035 ELECTRONICALLY SIGNED BY: AYALA SIMS MD DATE: 10/02/241038 [facility] MDM: Differential diagnosis: MUSCLE SPASMS, HYPOMAGNESEMIA, OSTEOARTHRITIS OF THE HIP, PATIENT IS A AN 79-YEAR-OLD FEMALE COMING IN TO BE EVALUATED FOR LEFT HIP PAIN. PER DAUGHTER AT BEDSIDE PATIENT HAS BEEN HAVING THIS DISCOMFORT IN HIS SINCE EARLIER TODAY FAMILY MEMBERS CONCERNED THAT SHE MIGHT HAVE FRACTURE. PATIENT HAS A LIMITED HISTORIAN DUE TO DEMENTIA. LABORATORY WORKUP MILD DEHYDRATION WITH HYPOMAGNESEMIA PATIENT WAS HYDRATED WITH IV FLUIDS MAGNESIUM WAS REPLACED PATIENT WILL BE DISCHARGED IN STABLE CONDITION X-RAY DID DISCLOSE CHRONIC CHANGES IN THE LEFT HIP AND LEFT KNEE REGION. ED Course Orders Procedure Category Date Status Time Cbc With Differential LAB 10/02/24 Complete 08:09 Basic Metabolic Panel LAB 10/02/24 Complete 08:09 Magnesium LAB 10/02/24 Complete 08:09 Hip Unilat 2-3vw Left RAD 10/02/24 Resulted 08:09 Knee 3vws Lt RAD 10/02/24 Resulted 08:09 Magnesium 2gm Premix PHA 10/02/24 Complete 50ml (Magnesium 2gm 10:49 0.9%Nacl 1000ml (Ns PHA 10/02/24 In Process 1000ml) 11:30 Current Medications Medications (Trade) Dose Ordered Sig/Rebekah Route PRN Reason Start Time Stop Time Status Last Admin Dose Admin Magnesium Sulfate 50 ml @ 0 mls/hr PROTOCOL STAT IV 10/02/24 10:49 10/02/24 10:50 DC 10/02/24 11:05 Sodium Chloride 1,000 ml @ 0 mls/hr ONCE ONCE IV 10/02/24 11:30 10/02/24 11:31 Vital Signs Date Time Temp Pulse Resp B/P (MAP) Pulse Ox O2 Delivery O2 Flow Rate FiO2 10/02/24 08:08 98.1 105 16 94/59 99 Room Air 0 DX & DISP Disposition: Discharge Departure Impression: Primary Impression: Dementia Additional Impressions: Hypomagnesemia, Muscle spasm Condition: Stable Scripts Magnesium Oxide (Magnesium) 250 Mg Tablet 1 TAB PO DAILY for 7 Days, #7 TAB 0 Refills Prov: MARLENA ROMO MD 10/02/24 Additional Instructions: FOLLOW-UP WITH PRIMARY CARE PROVIDER IN 1 TO 2 DAYS. TAKE MEDICATIONS DIRECTED HERE IN THE EMERGENCY ROOM. OKAY TO CONTINUE HOME MEDICATIONS UNLESS OTHERWISE DISCUSSED DURING YOUR VISIT IN THE EMERGENCY ROOM TODAY. RETURN TO YOUR NEAREST EMERGENCY ROOM IF SYMPTOMS WORSEN OR IF THERE IS NO IMPROVEMENT. CALL 911 IF YOU NEED IMMEDIATE ASSISTANCE. TAKE TYLENOL [id number] NEEDED AND IF NO CONTRAINDICATIONS ARE PRESENT. INCREASE ORAL HYDRATION. A WOUND CULTURE OR URINE CULTURE WAS ORDERED HERE IN THE EMERGENCY ROOM DEPARTMENT PLEASE FOLLOW-UP WITH PRIMARY CARE PROVIDER AND ADVISE THEM TO GET REPEAT PORTS FROM OUR FACILITY. IF YOU HAD ANY RENATE WRAP/SPLINTS THAT WERE APPLIED HERE, PLEASE DO NOT REMOVE THEM UNTIL YOU SEE YOUR PRIMARY CARE OR SPECIALTY. REFERRALS: Referrals: SOLITARIO HELLER MD (PCP) Time of Disposition: 11:18 MARLENA ROMO MD Oct 02, 2024 08:20
[2024-10-02 09:17] LABS: BASOPHILS # (AUTO) 0.01 K/uL (0.00-0.20); BASOPHILS % (AUTO) 0.2 % (0.0-5.0); EOSINOPHILS # (AUTO) 0.05 K/uL (0.00-0.70); EOSINOPHILS % (AUTO) 0.8 % (0.0-8.0); HEMATOCRIT 28.2 % (36-48); IMMATURE GRANULOCYTE ABSOLUTE 0.02 K/uL (0-1); LYMPHOCYTES # (AUTO) 2.1 K/uL (1.0-4.8); LYMPHOCYTES % (AUTO) 35.7 % (21.0-51.0); MEAN CORPUSCULAR HEMOGLOBIN 29.1 pg (27.0-33.0); MEAN CORPUSCULAR HGB CONC 32.6 g/dL (32.0-36.0); MEAN CORPUSCULAR VOLUME 89.2 fL (79-99); MONOCYTES # (AUTO) 0.3 K/uL (0.1-1.0); MONOCYTES % (AUTO) 5.6 % (3.0-13.0); NEUTROPHILS # (AUTO) 3.4 K/uL (1.8-7.7); NEUTROPHILS % (AUTO) 57.4 % (40.0-77.0); PLATELET COUNT (AUTO) 402 K/uL (130-400); RED BLOOD CELL COUNT(AUTO) 3.16 MIL/uL (4.00-5.50); RED CELL DISTRIBUTION WIDTH 15.4 % (11.0-15.5); WHITE BLOOD COUNT (AUTO) 5.9 K/uL (4.8-10.8)
[2024-10-02 09:55] LABS: CREATININE 0.4 mg/dL (0.5-1.0); MAGNESIUM 1.2 mg/dL (1.80-2.40); POTASSIUM 3.4 mmol/L (3.5-5.1)
--- NOTE | 2024-10-02 10:28 | HMCIMG ---
KNEE 3VWS LT HISTORY: Pain COMPARISON: None TECHNIQUE: 3 images of left knee were obtained. FINDINGS: There is no acute displaced fracture or dislocation. Vascular calcifications are seen. Degenerative changes are seen. IMPRESSION: 1. Findings as described above.
--- NOTE | 2024-10-02 10:39 | HMCIMG ---
HIP UNILAT 2-3VW LEFT HISTORY: Pain COMPARISON: None TECHNIQUE: 2 images of left hip were obtained. 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 Vascular calcifications are seen. Bony osteopenia is seen. There is no acute displaced fracture or dislocation. Degenerative changes are seen. IMPRESSION: 1. Findings as described above.
[2024-10-02] MEDS: MAGNESIUM 2GM PREMIX 50ML 50 ML IV STA (11:05)
[2024-10-02] MEDS ORDERED: MAGN250T10 PO (11:19)
[2024-10-02] MEDS ORDERED: 0.9%NACL 1000ML 1,000 ML IV ONE (11:30)
--- NOTE | 2024-10-02 12:24 | NUR ---
CALLED [facility] TO SET UP TRANSPORT FOR PT.
--- NOTE | 2024-10-02 13:07 | NUR ---
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
[2024-10-02 13:09] VITALS: BP 106/44; PULSE 79; RESP 18; TEMP 98; O2SAT 97
== END 2024-10-02 13:10 | disposition home or self-care (01) ==
LOC: EDH 08:07
DX: M62.838 Other muscle spasm (principal); F03.90 Unspecified dementia, unspecified severity, without behavioral disturbance, psychotic disturbance, mood disturbance, and anxiety; E83.42 Hypomagnesemia; K21.9 Gastro-esophageal reflux disease without esophagitis; E11.9 Type 2 diabetes mellitus without complications; E78.00 Pure hypercholesterolemia, unspecified; I10 Essential (primary) hypertension; Z79.01 Long term (current) use of anticoagulants; Z79.899 Other long term (current) drug therapy
CPT/HCPCS: 99284; 96365; 96366; 83735; 80048; 85025; 36415; 73502; 73562; J3475